=== PATIENT | male | born 1965 | race Caucasian/White ===

== ENCOUNTER 2016-12-02 16:59 | Emergency (ER) | payer BC ==
[2016-12-02] MEDS ORDERED: LIDOCAINE 1% INJ-PF (10 MG/ML) 30 ML SDV INJ ONE (18:02)
--- NOTE | 2016-12-02 18:09 | ER Document Report ---
ED Extremity Problem, Lower - General Chief Complaint: Laceration Stated Complaint: LEG LACERATION Time Seen by Provider: 12/02/16 17:50 Mode of Arrival: Ambulatory Information source: Patient Notes: -year-old male presents to ED for right lower leg laceration. He states he was cutting some plastic with a knife when the knife slipped and cut his lower leg. He states his tetanus shot was last year. TRAVEL OUTSIDE OF THE [place] IN LAST 30 DAYS: No - HPI Patient complains to provider of: Injury, Pain Location: Leg - Right lower leg Occurred: This afternoon Where: Home, Indoors Onset/Duration: Sudden Quality of pain: Sharp Severity: Moderate Pain Level: 4 Context: Laceration Recent injury: Yes Associated symptoms: Painful ambulation Exacerbated by: Movement, Walking Relieved by: Nothing - Related Data Allergies/Adverse Reactions: No Known Allergies Allergy (Verified 12/02/16 17:02) Past Medical History - General Information source: Patient - Social History Smoking Status: Current Every Day Smoker Cigarette use (# per day): Yes - 16 cigarettes a day Chew tobacco use (# tins/day): No Smoking Education Provided: Yes - less than 2 min Frequency of alcohol use: Social Drug Abuse: None 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 [employer] Lives with: Family Family History: Arthritis, CAD, COPD, CVA, Hyperlipidemia, Hypertension, Malignancy Patient has suicidal ideation: No Patient has homicidal ideation: No - Past Medical History Cardiac Medical History: Reports: Hx DVT, Hx Hypertension Pulmonary Medical History: Reports: None EENT Medical History: Reports: None Neurological Medical History: Reports: None Endocrine Medical History: Reports: None Renal/ Medical History: Reports: None Malignancy Medical History: Reports None GI Medical History: Reports: Hx Gastroesophageal Reflux Disease, Hx Colonoscopy , Hx Endoscopy Musculoskeltal Medical History: Reports Hx Arthritis, Reports Hx Musculoskeletal Trauma - Fracture hand bilateral toes foot nose Skin Medical History: Reports None Psychiatric Medical History: Reports: None Traumatic Medical History: Reports: Hx Fractures - Fracture hand bilateral toes foot nose Infectious Medical History: Reports: None Past Surgical History: Reports: Hx Appendectomy, Hx Cardiac Catheterization, Hx Orthopedic Surgery - R foot/knee, L hand, Hx Tonsillectomy, Other - eye surger - Immunizations Immunizations up to date: No - tetnus given in ED Hx Diphtheria, Pertussis, Tetanus Vaccination: Yes Review of Systems - Review of Systems Constitutional: No symptoms reported EENT: No symptoms reported Cardiovascular: No symptoms reported Respiratory: No symptoms reported Gastrointestinal: No symptoms reported Genitourinary: No symptoms reported Male Genitourinary: No symptoms reported Musculoskeletal: No symptoms reported Skin: Other - Right lower leg laceration Hematologic/Lymphatic: No symptoms reported Neurological/Psychological: No symptoms reported Physical Exam - Vital signs Vitals: Temp Pulse Resp BP Pulse Ox 98.1 F 69 20 142/91 H 95 12/02/16 17:02 12/02/16 17:02 12/02/16 17:02 12/02/16 17:02 12/02/16 17:02 Interpretation: Normal - General General appearance: Appears well, Alert - HEENT Head: Normocephalic, Atraumatic Eyes: Normal Pupils: PERRL - Respiratory Respiratory status: No respiratory distress Chest status: Nontender Breath sounds: Normal Chest palpation: Normal - Cardiovascular Rhythm: Regular Heart sounds: Normal auscultation Murmur: No - Abdominal Inspection: Normal Distension: No distension Bowel sounds: Normal Tenderness: Nontender Organomegaly: No organomegaly - Back Back: Normal, Nontender - Extremities General upper extremity: Normal inspection, Nontender, Normal color, Normal ROM , Normal temperature General lower extremity: Nontender, Normal color, Normal ROM, Normal temperature , Normal weight bearing. No: Ramesh's sign Calf: Laceration - Neurological Neuro grossly intact: Yes Cognition: Normal Orientation: AAOx4 Gay Coma Scale Eye Opening: Spontaneous Gay Coma Scale Verbal: Oriented Gay Coma Scale Motor: Obeys Commands Gay Coma Scale Total: 15 Speech: Normal Motor strength normal: LUE, RUE, LLE, RLE Sensory: Normal - Psychological Associated symptoms: Normal affect, Normal mood - Skin Skin Temperature: Warm Skin Moisture: Dry Skin Color: Normal Skin irregularity: Laceration - Lower leg right Course - Vital Signs Vital signs: Temp Pulse Resp BP Pulse Ox 98.1 F 50 L 18 121/68 95 12/02/16 17:02 12/02/16 19:27 12/02/16 19:27 12/02/16 19:27 12/02/16 19:27 Discharge - Discharge Clinical Impression: Laceration of left leg Qualifiers: Encounter type: initial encounter Qualified Code(s): S81.812A - Laceration without foreign body, left lower leg, initial encounter Condition: Stable Disposition: HOME, SELF-CARE Additional Instructions: LACERATION CARE: Your laceration has been sutured to keep the skin edges aligned during healing. The time of suture removal depends on the nature and location of your cut. Please follow the care instructions the doctor has outlined for you and return for further care, according to the schedule you've been given. Keep the wound and dressing clean. Unless you were told otherwise, you may shower daily, blotting the wound dry with a clean, unused towel. At other times, If the dressing gets wet or blood soaked, remove it and blot the wound dry, then reapply a new dressing. Unless you were instructed otherwise, dressings should be changed at least daily. If any signs of infection occur (swelling, redness, drainage, increasing tenderness, red streaks, tender lumps in the armpit or groin above the laceration, or fever), see the doctor immediately. SOAP CLEANSING: Gently wash the wound daily using a mild soap (like Ivory, Phisoderm, Neutrogena). Use warm water, rubbing gently until all debris, ooze, and crusting have been washed from the wound. Allow to dry briefly (about 10 minutes) after cleaning. Repeat this cleansing at least three times a day for the first two days and then once or twice a day. ANTIBIOTIC OINTMENT PROTECTION: Your wounds are such that dressing them is not practical or optional. After cleansing, you should apply a thin coating of antibiotic ointment ( Bacitracin, not Neosporin) to the wounds at least three times daily. This lessens infection risk, and may decrease the amount of scarring. Use a q-tip or dull butter knife, not your finger, to apply this ointment. Any debris or ooze which builds up in the ointment should be gently rubbed off with a sterile gauze pad. Harder crusting may need to be gently scrubbed off with a clean wash cloth with soap and warm water, perhaps applying a warm, wet wash cloth to the wound for ten minutes first. Development of redness, severe itching, or blistering may mean allergy to the ointment. See the doctor. PROPHYLACTIC ANTIBIOTIC: The antibiotics which have been prescribed are designed to decrease the risk of infection. Only certain types of wounds benefit from this -- the typical cut, scrape, or burn DOES NOT require antibiotics. Of course, infection can still occur despite the use of prophylactic antibiotics. Your wound will heal with less chance of an infectious complication if you take the medication as directed. The most important dose is the FIRST dose, so don't delay filling the prescription! ORAL NARCOTIC MEDICATION: You have been given a prescription for pain control. This medication is a narcotic. It's best taken with food, as nausea can result if taken on an empty stomach. Don't operate machinery or drive within six hours of taking this medication. Do not combine this medicine with alcohol, or with any medication which can cause sedation (such as cold tablets or sleeping pills) unless you get permission from the physician. Narcotics tend to cause constipation. If possible, drink plenty of fluids and eat a diet high in fiber and fruits. Cephalosporins An antibiotic of the cephalosporin class has been prescribed. This type of antibiotic covers a wide variety of infections, including those of the skin, lungs, middle ear, and urinary tract. This antibiotic is somewhat similar to the penicillin family. In rare cases , a person who is allergic to penicillin will also be allergic to this medication. If you have had a severe allergic reaction to penicillin, and have not taken this antibiotic since that time, notify your doctor. Antibiotics which cover many germs ("broad spectrum" antibiotics) are more likely to cause diarrhea or "yeast" infections. Women prone to vaginal yeast problems may suffer an attack after taking this antibiotic. In infants, oral thrush (white spots "stuck" on the cheek) or yeast diaper rash may result. See your doctor if these problems occur. Call the doctor at once if you develop hives, itching, shortness of breath , or lightheadedness. cef FOLLOW-UP CARE: Please return in __3___ days for an infection check and dressing change. Your sutures should be removed in __9___ days. To facilitate a timely removal of your sutures, you may return to the Emergency Department at [facility]. You do not need to call for an appointment, but the best time to come in for suture removal is early in the morning. If you have been referred to another physician for follow-up care, call that physicians office for an appointment as you were instructed. If you experience a significant change in your laceration, or if you are concerned there may be an infection (swelling, redness, drainage, increasing tenderness, red streaks, tender lumps in the armpit or groin above the laceration, or fever) , return to the Emergency Department immediately re-evaluation. Prescriptions: Hydrocodone/Acetaminophen [[place] 5-325 mg Tablet] 1 tab PO Q6HP PRN #7 tablet PRN Reason: Cefdinir 300 mg PO Q12 7 Days Forms: Elevated Blood Pressure, Smoking Cessation Education, Return to Work Referrals: FAIZA RYAN DO [Primary Care Provider] - Follow up as needed
[2016-12-02 19:29] VITALS: BP 121/68
== END 2016-12-02 19:27 | disposition home or self-care (01) ==
LOC: ER 16:59
PROC: 0HQKXZZ Repair Right Lower Leg Skin, External Approach (ICD-10-PCS; principal; 2016-12-02)
DX: S81.811A Laceration without foreign body, right lower leg, initial encounter (principal); F17.210 Nicotine dependence, cigarettes, uncomplicated; W26.0XXA Contact with knife, initial encounter
CPT/HCPCS: 99282; 12001; J3490

== ENCOUNTER 2017-02-08 01:38 | Observation (INO) | payer BC ==
[2017-02-08 03:27] LABS: ABSOLUTE BASOPHILS # (AUTO) 0.1 10^3/uL (0.0-0.2); ABSOLUTE EOSINOPHILS # (AUTO) 0.4 10^3/uL (0.0-0.6); ABSOLUTE LYMPHOCYTES (AUTO) 2.9 10^3/uL (0.5-4.7); ABSOLUTE MONOCYTES (AUTO) 1.1 10^3/uL (0.1-1.4); ABSOLUTE NEUT (AUTO) 5.7 10^3/uL (1.7-8.2); BASOPHILS % (AUTO) 1.4 % (0-2); EOSINOPHILS % (AUTO) 3.7 % (0-6); HEMATOCRIT 45.4 % (37.9-51.0); HEMOGLOBIN 15.4 g/dL (13.5-17.0); HGB HCT DIFFERENCE 0.8; LYMPHOCYTES % (AUTO) 28.5 % (13-45); MEAN CORPUSCULAR HEMOGLOBIN 31.3 pg (27.0-33.4); MEAN CORPUSCULAR VOLUME 92 fl (80-97); MONOCYTES % (AUTO) 10.5 % (3-13); RED BLOOD COUNT 4.93 10^6/uL (4.35-5.55); RED CELL DISTRIBUTION WIDTH 14.7 % (11.5-14.0); SEGMENTED NEUTROPHILS % (AUTO) 55.9 % (42-78); WHITE BLOOD COUNT 10.3 10^3/uL (4.0-10.5)
[2017-02-08 03:38] LABS: ALANINE AMINOTRANSFERASE 32 U/L (21-72); ALBUMIN 3.8 g/dL (3.5-5.0); ALKALINE PHOSPHATASE 60 U/L (38-126); ANION GAP 11 (5-19); ASPARTATE AMINO TRANSFERASE 26 U/L (17-59); BILIRUBIN,DIRECT 0.3 mg/dL (0.0-0.4); BILIRUBIN,TOTAL 0.3 mg/dL (0.2-1.3); BLOOD UREA NITROGEN 15 mg/dL (7-20); CALCIUM 8.3 mg/dL (8.4-10.2); CARBON DIOXIDE 23 mmol/L (22-30); CHLORIDE 109 mmol/L (98-107); CREATINE KINASE 369 U/L (55-170); GLUCOSE 139 mg/dL (75-110); POTASSIUM 4.1 mmol/L (3.6-5.0); SODIUM 142.5 mmol/L (137-145); TOTAL PROTEIN 6.9 g/dL (6.3-8.2)
--- NOTE | 2017-02-08 03:50 | RADIOLOGY REPORT (SQ) ---
EXAM DESCRIPTION: CHEST SINGLE VIEW COMPLETED DATE/TIME: 02/08/2017 3:37 am REASON FOR STUDY: chest pain COMPARISON: None. EXAM PARAMETERS: NUMBER OF VIEWS: One view. TECHNIQUE: Single frontal radiographic view of the chest acquired. RADIATION DOSE: NA LIMITATIONS: None. FINDINGS: LUNGS AND PLEURA: Mild interstitial markings. MEDIASTINUM AND HILAR STRUCTURES: No masses. Contour normal. HEART AND VASCULAR STRUCTURES: Heart normal in size. Normal vasculature. BONES: No acute findings. HARDWARE: None in the chest. OTHER: No other significant finding. IMPRESSION: Mild interstitial markings which may indicate mild pulmonary edema and/or chronic inters titial lung disease. TECHNICAL DOCUMENTATION: JOB ID: [id number]
[2017-02-08 03:57] LABS: CREATINE KINASE MB 4.79 ng/mL (<4.55); TROPONIN I < 0.012 ng/mL
[2017-02-08] MEDS ORDERED: NITROGLYCERIN 2% OINTMENT 1 GM PACKET TP ONE (04:23)
[2017-02-08] MEDS ORDERED: ASPIRIN 325 MG TABLET PO ONE (04:23)
--- NOTE | 2017-02-08 04:29 | ER Document Report ---
ED General - General Chief Complaint: Chest Pain Stated Complaint: CHEST PAIN Time Seen by Provider: 02/08/17 04:15 Notes: Patient is a 51-year-old male who presents with complaints of chest pain. Chest pain came on suddenly while he is lying in bed at home around midnight. Pain was sharp and severe. It radiated across his entire chest. It did not go into his neck or jaw or back. He did feel short of breath. He was a little diaphoretic. He did vomit once. No abdominal pain. He does have a history of "a mild [place]" in 2006. He was shipped [facility]. At that time they did a heart cath and stress test which was negative. No stress test since then. Does have a history of high blood pressure. He does have a history of smoking. TRAVEL OUTSIDE OF THE [place] IN LAST 30 DAYS: No - Related Data Allergies/Adverse Reactions: No Known Allergies Allergy (Verified 12/02/16 17:02) Past Medical History - Social History Smoking Status: Current Every Day Smoker Frequency of alcohol use: None Drug Abuse: None Family History: Arthritis, CAD, COPD, CVA, Hyperlipidemia, Hypertension, Malignancy Patient has suicidal ideation: No Patient has homicidal ideation: No - Past Medical History Cardiac Medical History: Reports: Hx DVT, Hx Hypertension Pulmonary Medical History: Denies: Hx COPD Renal/ Medical History: Denies: Hx Peritoneal Dialysis GI Medical History: Reports: Hx Gastroesophageal Reflux Disease, Hx Colonoscopy , Hx Endoscopy Musculoskeltal Medical History: Reports Hx Arthritis, Reports Hx Musculoskeletal Trauma - Fracture hand bilateral toes foot nose Traumatic Medical History: Reports: Hx Fractures - Fracture hand bilateral toes foot nose Past Surgical History: Reports: Hx Appendectomy, Hx Cardiac Catheterization, Hx Orthopedic Surgery - R foot/knee, L hand, Hx Tonsillectomy, Other - eye surger. Denies: Hx Pacemaker - Immunizations Immunizations up to date: No - tetnus given in ED Hx Diphtheria, Pertussis, Tetanus Vaccination: Yes Review of Systems - Review of Systems Notes: My Normal Review Basic REVIEW OF SYSTEMS: CONSTITUTIONAL : Denies fever, chills, or sweats. Denies recent illness. CARDIOVASCULAR: Had chest pain RESPIRATORY: Denies cough, cold, or chest congestion. Denies shortness of breath, difficulty breathing, or wheezing. GASTROINTESTINAL: Denies abdominal pain. Vomiting x1. Denies constipation. Last BM: MUSCULOSKELETAL: Denies neck or back pain or joint pain or swelling. SKIN: Denies rash or skin lesions. NEUROLOGICAL: Denies altered mental status or loss of consciousness. Denies headache. Denies weakness or paralysis or loss of use of either side. Denies problems with gait or speech. Denies sensory or motor loss. ALL OTHER SYSTEMS REVIEWED AND NEGATIVE. Physical Exam - Vital signs Vitals: Temp Pulse Resp BP Pulse Ox 98 F 61 18 144/87 H 96 02/08/17 01:42 02/08/17 01:42 02/08/17 01:42 02/08/17 01:42 02/08/17 01:42 - Notes Notes: General Appearance: Well nourished, alert, cooperative, no acute distress, no obvious discomfort. Vitals: reviewed, See vital signs table. Eyes: PERRL, EOMI, Conjuctiva clear Mouth: No decreasd moisture Neck: Supple, no neck tenderness Lungs: No wheezing, No rales, No rhonci, No accessory muscle use, good air exchange bilaterally. Heart: Normal rate, Regular rythm, No murmur, no rub Abdomen: Normal BS, soft, No rigidity, No abdominal tenderness, No guarding, no rebound, no abdominal masses, no organomegaly Extremities: strength 5/5 in all extremities, good pulses in all extremities, no swelling or tenderness in the extremities, no edema. Skin: warm, dry, appropriate color, no rash Neuro: speech clear, oriented x 3, normal affect, responds appropriately to questions. Course - Re-evaluation Re-evalutation: 02/08/17 04:30 Patient is feeling improved. His pain is improving. I will give him a dose of aspirin. Last time it aspirin was 5 AM yesterday. Patient does have risk factors for heart disease. He is a smoker. Some family history. Patient's heart score is 4. He does have Nitropaste in place to help prevent return of pain. I did talk to him about admission and he is agreeable to it. We are currently pending to hear back from the hospitalist about possible admission. 02/08/17 06:[address] Cook who agrees to admit the patient. - Vital Signs Vital signs: Temp Pulse Resp BP Pulse Ox 98 F 61 18 144/87 H 96 02/08/17 01:42 02/08/17 01:42 02/08/17 01:42 02/08/17 01:42 02/08/17 01:42 - Laboratory Result Diagrams: 02/08/17 03:10 02/08/17 03:10 Laboratory results interpreted by me: 02/08/17 02/08/17 02/08/17 03:10 03:10 03:10 RDW 14.7 H Chloride 109 H Glucose 139 H Calcium 8.3 L Creatine Kinase 369 H CK-MB (CK-2) 4.79 H Discharge - Discharge Clinical Impression: Chest pain Qualifiers: Chest pain type: unspecified Qualified Code(s): R07.9 - Chest pain, unspecified Condition: Stable Disposition: ADMITTED OBSERVATION Admitting Provider: Hospitalist Unit Admitted: Telemetry
[2017-02-08] MEDS ORDERED: MAG HYDROX/AL HYDROX/SIMETH SUSP 30 ML UDCUP PO PRN (07:26)
[2017-02-08] MEDS ORDERED: PROMETHAZINE HCL 25 MG TABLET PO PRN (07:29)
[2017-02-08] MEDS ORDERED: ACETAMINOPHEN 325 MG TABLET PO PRN (07:29)
[2017-02-08] MEDS ORDERED: NICOTINE 14 MG/24 HR PATCH.TD24 TD PRN (07:36)
--- NOTE | 2017-02-08 08:27 | PDOC H&P ---
History of Present Illness Admission Date/PCP: 02/08/17 07:26 FAIZA RYAN DO Patient complains of: Chest pain History of Present Illness: MAX LLANOS JR is a 51 year old male with underlying hypertension , along with coronary artery disease, having suffered a previous [place] 2006 with negative heart cath at that time, according to patient. No cardiac workup since then. Patient was lying in bed around midnight on the night when he developed sudden sharp and quite severe primarily substernal chest pain, that radiated across his entire chest. Did not go into his neck jaw or back. Associated shortness of breath and mild diaphoresis, along with vomiting 1. No abdominal pain. Drove himself to the emergency room. Has been chest pain-free since Nitropaste applied. History remarkable for DVT of the left lower extremity last year, treated with Lovenox. He also drove back and forth to [place] last month, but did state that he stopped multiple times along the way. Currently resting quietly, chest pain-free. Patient has been discussed with emergency room physician who evaluated the patient. . Dictation via voice recognition software. Laboratory results are listed in [employer] and are reviewed. X-ray summary results are listed below, with full report(s) reviewed. . EKG reviewed and compared to prior tracing from August 21, 2012. Social history/personal habits: . 4 children. 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 Just under a pack of cigarettes per day. Occasional alcohol, but not very much or very often. Denies illicit drug use. No known drug allergies. Home medications initially autopopulated into [facility] may not accurately reflect patient's true medications, dosages, and/or frequencies. technology solutions architect to reconcile medications. Unfortunately, patient not certain of all medications/dosages/frequencies. REVIEW OF SYSTEMS: Constitutional: No fever or chills. Eyes: Wears reading glasses. ENT: No swallowing problems or complaints. Partial hearing loss. Pulmonary: See history and present illness. Cardiovascular: See history and present illness. Gastrointestinal: See history and present illness. Mild occasional reflux. Skin: No current complaints, including rashes. Hematologic: Easy bruising. Neurologic: No current complaints, including numbness or tingling. Musculoskeletal: Joint pain from arthritis. Psychiatric: Denies anxiety or depression. Endocrine: No current complaints, including polyuria. Genitourinary: No current complaints, including dysuria. PHYSICAL EXAMINATION: 6 feet tall. 108.4 kg. BMI 32.4 kg/m. Blood pressure 123/68. Pulse 54 and regular. 95% saturation on room air. Respirations are 16 and unlabored. Temperature 98. Slightly obese otherwise well-nourished well-developed male appearing approximately his stated age. Pleasant awake alert and cooperative. No obvious distress other than perhaps mildly anxious. Skin is warm and dry. No grossly obvious evidence of rash in areas of skin examined. No subcutaneous nodules palpated. ENT: Perhaps mildly hard of hearing to normal conversation. Tongue midline on protrusion pink and slightly tacky. Eyes: No scleral icterus. Pupils equal and reactive to light at 4 mm. [place] conjunctivae. Neck is supple and nontender to gentle active range of motion and palpation. Midline trachea. No palpable thyroid nodule mass enlargement or tenderness. Lymphatic: No palpable cervical or clavicular nodes. Neck and lymphatic exams limited by patient body habitus. Psychiatric: Reasonable insight into acute and chronic medical issues. Oriented to time location and why here. Lungs: Auscultation reveals clear and equal breath sounds bilaterally. No use of accessory respiratory muscles. Cardiovascular: Heart regular rate and rhythm, without gallop murmur or rub. No carotid or abdominal aortic bruits. No ankle or pedal edema. Palpable dorsalis pedis pulses. Abdomen:soft somewhat obese nontender with positive bowel sounds. Unable to adequately evaluate abdomen for masses or organomegaly due to body habitus. Compression of neither his upper abdomen nor sternum reproduces his previously noted chest discomfort. Extremities: Feet are warm and dry. No calf tenderness to compression. No grossly obvious visual evidence of calf swelling. Gentle manipulation of lower extremities fails to reveal any obvious evidence of injury or instability to knees hips or ankles. Neurologic: Moves upper extremities grossly normally. Patellar reflexes absent. Absent Babinski. Light touch is intact at feet. Dorsiflexion and plantarflexion of feet 5 / 5 and symmetric. Past Medical History Cardiac Medical History: Reports: Coronary Artery Disease, DVT - 2016, Myocardial Infarction, Hypertension Denies: Atrial Fibrillation, Congestive Heart Failure, Hyperlipidema, Pulmonary Embolism Pulmonary Medical History: Denies: Asthma, Chronic Obstructive Pulmonary Disease (COPD), Sleep Apnea EENT Medical History: Reports: Eyes - Glasses, Ears - Partial hearing loss Denies: Throat Neurological Medical History: Denies: Hemorrhagic CVA, Ischemic CVA, Seizures Endocrine Medical History: Denies: Diabetes Mellitus Type 1, Diabetes Mellitus Type 2, Hyperthyroidism, Hypothyroidism Renal/ Medical History: Reports: None GI Medical History: Reports: Gastroesophageal Reflux Disease Denies: Cirrhosis, Hepatitis, Peptic Ulcer Disease Musculoskeltal Medical History: Reports: Arthritis Skin Medical History: Reports: None Psychiatric Medical History: Reports: Tobacco Dependency Denies: Alcohol Dependency, Depression, General Anxiety Disorder, Substance Abuse Hematology: Reports: Other - Easy bruising Denies: Anemia Infectious Medical History: Denies: Hepatitis B, Hepatitis C Past Surgical History Past Surgical History: Reports: Appendectomy, Cardiac Catheterization, Orthopedic Surgery - R foot/knee, L hand, Tonsillectomy, Other - Removal of foreign body from my Denies: Pacemaker Social History Information Source: Patient, Emergency Med Personnel, [facility] Records Lives with: Spouse/Significant other Smoking Status: Current Every Day Smoker Frequency of Alcohol Use: Occasional Drugs: None - Advance Directive Resuscitation Status: Full Code Surrogate healthcare decision maker:: Family History Family History: Arthritis, CAD, COPD, CVA, Hyperlipidemia, Hypertension, Malignancy Parental Family History Reviewed: Yes - Mother of cerebral aneurysm; father of suicide. Children Family History Reviewed: Yes - Healthy Sibling(s) Family History Reviewed.: Yes - Coronary artery disease Medication/Allergy Home Medications: Aspirin [Aspirin EC] 81 mg PO DAILY 02/08/17 Omeprazole 40 mg PO DAILY 02/08/17 Allergies/Adverse Reactions: No Known Allergies Allergy (Verified 12/02/16 17:02) Physical Exam Vital Signs: Temp Pulse Resp BP Pulse Ox 98.4 F 46 L 16 107/64 93 02/08/17 07:26 02/08/17 07:26 02/08/17 07:26 02/08/17 07:26 02/08/17 07:26 Results Impressions: Chest X-Ray 02/08/17 02:51 IMPRESSION: Mild interstitial markings which may indicate mild pulmonary edema and/or chronic interstitial lung disease. Assessment & Plan - Diagnosis (1) Chest pain Qualifiers: Chest pain type: unspecified Qualified Code(s): R07.9 - Chest pain, unspecified Is this a current diagnosis for this admission?: YesPlan: Patient will be placed in observation bed under chest pain protocol. Patient understands to notify staff should chest pain recur. Serial troponin . Repeat EKG. lipid panel. I have strongly encouraged patient to be careful getting out of bed without notifying staff, to avoid a fall with injury. Knee high SCDs for DVT prophylaxis, along with subcu Lovenox. Impression and plans were discussed with patient, who concurs . Time spent in evaluation and management of patient: 68 minutes. (2) CAD (coronary artery disease) Qualifiers: Coronary Disease-Associated Artery/Lesion type: [place] artery [place] vs. transplanted heart: [place] heart Associated angina: with unspecified angina Qualified Code(s): I25.119 - Atherosclerotic heart disease of [place] coronary artery with unspecified angina pectoris Is this a current diagnosis for this admission?: Yes (3) History of DVT (deep vein thrombosis) Is this a current diagnosis for this admission?: YesPlan: D-dimer. (4) HTN (hypertension) Qualifiers: Hypertension type: essential hypertension Qualified Code(s): I10 - Essential (primary) hypertension Is this a current diagnosis for this admission?: YesPlan: Resume home medications as appropriate once these have been determined and reviewed. (5) Tobacco dependency Is this a current diagnosis for this admission?: YesPlan: As needed nicotine patch.
[2017-02-08] MEDS: ASPIRIN 81 MG TABLET, ENT COATED PO SCH (09:43)
[2017-02-08] MEDS: DOCUSATE SODIUM 100 MG CAPSULE PO SCH ×2 (09:44→17:51)
[2017-02-08 09:49] LABS: CHOLESTEROL 152.32 mg/dL (0-200); Direct HDL 40 mg/dL (>40); TRIGLYCERIDES 167 mg/dL (<150)
[2017-02-08 09:59] LABS: DIRECT LDL 86 mg/dL (<100)
[2017-02-08] MEDS ORDERED: ENOXAPARIN SODIUM INJ 40 MG/0.4 ML DISP.SYRIN SUBCUT SCH (10:00)
[2017-02-08 10:02] LABS: VLDL CHOLESTEROL 33.4 mg/dL (10-31)
--- NOTE | 2017-02-08 10:59 | EKG REPORT ---
SEVERITY:- BORDERLINE ECG - SINUS RHYTHM BORDERLINE T WAVE ABNORMALITIES : Confirmed by: Alma Delia Reyes 08-Feb-2017 10:58:21
[2017-02-08] MEDS ORDERED: NORMAL SALINE 1000 ML 1,000 ML IV PRN (13:58)
[2017-02-08] MEDS ORDERED: NITROGLYCERIN 2.5 MG (0.1 MG/HR) PATCH.TD24 TD SCH (14:00)
--- NOTE | 2017-02-08 14:13 | Progress Note ---
Provider Note Provider Note: admitted earlier this morning for substernal chest pain with history of prior [place] but negative heart cath at [place], his pain resolved with topical nitro and has not recurred. his exam is benign, no murmur, lungs are clear, NSR without ischemic changes on ecg, symmetric pulses at the radial arteries, no edema or JVD, no carotid or abdominal bruits, clubbing of all nails with tobacco stains on his dominant hand. cxr was clear without widening of the mediastinum. labs unremarkable except CK, MB elevated on arrival and repeat troponin now 0.373. A/P: NSTEMI - will ck another troponin, echo and CTA chest. start empiric full dose lovenox, high dose statin, topical nitro and continue ASA. if continues to rise and remaining eval are negative then he will need transfer for heart cath tob abuse - cessation counseling
[2017-02-08] MEDS ORDERED: NITROGLYCERIN 2.5 MG (0.1 MG/HR) PATCH.TD24 TD ONE (16:00)
[2017-02-08 16:21] LABS: CREATINE KINASE MB 5.94 ng/mL (<4.55)
[2017-02-08 16:27] LABS: TROPONIN I 0.509 ng/mL
[2017-02-08] MEDS ORDERED: CLOPIDOGREL BISULFATE 300 MG TABLET PO ONE (17:30)
--- NOTE | 2017-02-08 18:02 | RADIOLOGY REPORT (SQ) ---
EXAM DESCRIPTION: CTA CHEST COMPLETED DATE/TIME: 02/08/2017 5:43 pm REASON FOR STUDY: chest pain, eval for dissection, aneurysm COMPARISON: None. TECHNIQUE: CT scan of the chest performed using helical scanning technique with dynamic intravenous contrast injection. Images reviewed with lung, soft tissue and bone windows. Reconstructed coronal and sagittal MPR images reviewed. Additional 3 dimensional post-processing performed to develop Maximal Intensity Projection images (NM P). All images stored on PACS. All CT scanners at this facility use dose modulation, iterative reconstruction, and/or weight based d osing when appropriate to reduce radiation dose to as low as reasonably achievable (ALARA). [facility]: Dose Right [facility]: CareDose [facility]: Dose Right [facility]: Teradose 4D [facility]: Braclet CONTRAST TYPE AND DOSE: contrast/concentration: Isovue 370.00 mg/ml; Total Contrast Delivered: 82.0 ml; Total Saline Delivered: 70.0 ml RENAL FUNCTION: Creatinine 0.7 BUN 15 RADIATION DOSE: Up-to-date CT equipment and radiation dose reduction techniques were employed. CTDIv ol: 24.0 - 29.8 mGy. DLP: 968 mGy-cm. . LIMITATIONS: None. FINDINGS: LUNGS AND PLEURA: Small peripheral blebs are present in the lung apices. Small blebs are seen posteriorly in the lower lobes. There is no pulmonary infiltrate or pleural effusion. AORTA AND GREAT VESSELS: No aneurysm or dissection. HEART: No pericardial effusion. PULMONARY ARTERIES: No emboli visualized in the main pulmonary arteries or the segmental branches. HILAR AND MEDIASTINAL STRUCTURES: No identified masses or abnormal nodes. HARDWARE: None in the chest. UPPER ABDOMEN: No significant findings. Limited exam. THYROID AND OTHER SOFT TISSUES: No masses. No adenopathy. BONES: No acute or significant finding. 3D MIPS: Confirm above findings. OTHER: No other significant finding. IMPRESSION: 1. Pulmonary emphysematous changes as described. 2. There is no evidence of aortic aneurysm or dissection. There is no evidence of pulmonary embolus . TECHNICAL DOCUMENTATION: JOB ID: [id number] Quality ID # [id number]: Final reports with documentation of one or more dose reduction techniques (e.g., Au tomated exposure control, adjustment of the mA and/or kV according to patient size, use of iterative reconstruction technique) 2010 [employer]- All Rights Reserved
--- NOTE | 2017-02-08 19:01 | PDOC TRANSFER SUMMARY ---
General Admission Date/PCP: 02/08/17 07:26 FAIZA RYAN DO Transfer Date: 02/09/17 Accepting Facility: [facility] Accepting Physician: dr boaz panda Resuscitation Status: Full Code - Transfer Diagnosis (1) NSTEMI (non-ST elevation myocardial infarction) Is this a current diagnosis for this admission?: YesDiagnosis Summary: presented with chest pain and a good story and ruled in for acute myocardial ischemia with rising troponins and CK/MBs. his ecg shows loss of R wave progression and flattening of anterolateral T waves since last one on file in 2012. case was discussed with dr araya without formal consultation and he agrees that pt needs interventional cardiology evaluation for left heart cath. I spoke with Dr Boaz Panda at [facility] who agreed to accept him transfer pending an available bed. He remains chest pain free at this time. He is now receiving topical NTG, loading dose of plavix 300mg x1, lovenox 1 mg/kg, ASA and high dose lipitor. beta cristian is contraindicated due to developing mild bradycardia with resting HR in mid-50s. Case discussed with he and his and they are agreeable to transfer. (2) CAD (coronary artery disease) Is this a current diagnosis for this admission?: YesDiagnosis Summary: as above (3) History of DVT (deep vein thrombosis) Is this a current diagnosis for this admission?: YesDiagnosis Summary: treated appropriately last year, not on chronic anticoagulation; CTA neg for dissection, aneurysm and PE and ddimer only 28. (4) HTN (hypertension) Is this a current diagnosis for this admission?: YesDiagnosis Summary: well controlled at present. (5) Tobacco dependency Is this a current diagnosis for this admission?: YesDiagnosis Summary: counseled regarding tobacco cessation - Transfer Medications Home Medications: Aspirin [Aspirin EC] 81 mg PO DAILY 02/08/17 Omeprazole 40 mg PO DAILY 02/08/17 Transfer Medications: Current Medications Acetaminophen (Tylenol 325 Mg Tablet) 650 mg PO Q4HP PRN Stop: 03/10/17 07:28 Al Hydrox/Mg Hydrox/Simethicone (Maalox Plus Susp 30 Udcup) 30 ml PO Q4HP PRN PRN Reason: indigestion Stop: 03/10/17 07:25 Aspirin (Ecotrin 81 Mg Ec Tablet) 81 mg PO DAILY MIRA Stop: 03/10/17 09:59 Last Admin: 02/08/17 09:43 Dose: 81 mg Atorvastatin Calcium (Lipitor 80 Mg Tablet) 80 mg PO QHS MIRA Stop: 03/10/17 21:59 Docusate Sodium (Colace 100 Mg Capsule) 100 mg PO BID MIRA Stop: 03/10/17 09:59 Last Admin: 02/08/17 17:51 Dose: Not Given Enoxaparin Sodium (Lovenox Inj 120 Mg/0.8 Ml Disp.Syrin) 110 mg SUBCUT Q12 MIRA Stop: 03/10/17 21:59 Sodium Chloride (Nacl 0.9% 1000 Ml Iv Soln) 1,000 mls @ 100 mls/hr IV CONTINUOUS PRN PRN Reason: THIS MED IS NOT "PRN" Stop: 03/10/17 13:57 Last Admin: 02/08/17 15:19 Dose: 1,000 ml Nicotine (Nicoderm 14 Mg/24 Hr Transdermal Patch) 1 each TD DAILYP PRN Stop: 03/10/17 07:35 Last Admin: 02/08/17 09:44 Dose: 1 each Nitroglycerin (Nitro-Dur 2.5 Mg (0.1 Mg/Hr) Transdermal Ptch) 1 each TD DAILY MIRA Stop: 03/11/17 09:59 Promethazine HCl (Phenergan 25 Mg Tablet) 12.5 mg PO Q6HP PRN Stop: 03/10/17 07:28 Sodium Chloride (Saline Flush 2.5 Ml Monoject Prefil Syrin) 2.5 ml IV Q8 MIRA Stop: 03/10/17 13:59 Last Admin: 02/08/17 15:33 Dose: Not Given - Allergies Allergies/Adverse Reactions: No Known Allergies Allergy (Verified 12/02/16 17:02) - Diet/Activity Discharge Diet: Regular Discharge Activity: Supervised Activity Hospital Course Hospital Course: per dr naik's admitting H&P - "MAX LLANOS JR is a 51 year old male with underlying hypertension, along with coronary artery disease , having suffered a previous [place] 2006 with negative heart cath at that time, according to patient. No cardiac workup since then. Patient was lying in bed around midnight on the night when he developed sudden sharp and quite severe primarily substernal chest pain, that radiated across his entire chest. Did not go into his neck jaw or back. Associated shortness of breath and mild diaphoresis, along with vomiting 1. No abdominal pain. Drove himself to the emergency room. Has been chest pain-free since Nitropaste applied. History remarkable for DVT of the left lower extremity last year, treated with Lovenox. He also drove back and forth to [place] last month, but did state that he stopped multiple times along the way. Currently resting quietly, chest pain- free." his initial evaluation was largely reassuring other than elevated CK/MB, his TpI was normal and ecg just had nonspecific findings. his chest went away with topical NTG and did not return. he was admitted and ruled in for acute myocardial ischemia with rising enzymes but no further changes to his ecg than noted above. stat CTA ruled out aortic dissection and aneurysm and PE, ddimer was only 28 and wnl and remainder of his labs unremarkable, his lipid panel only mildly abnormal. 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 Physical Exam Vital Signs: Temp Pulse Resp BP Pulse Ox 98.3 F 55 L 16 107/64 95 02/08/17 16:59 02/08/17 16:59 02/08/17 16:59 02/08/17 16:59 02/08/17 16:59 Intake & Output 02/07/17 02/08/17 02/09/17 06:59 06:59 06:59 Intake Total 2052 Output Total 1700 Balance 352 Weight 108 kg General appearance: PRESENT: no acute distress, obese, well-developed, well- nourished Head exam: PRESENT: atraumatic, normocephalic Eye exam: PRESENT: EOMI. ABSENT: conjunctival injection, scleral icterus Neck exam: ABSENT: carotid bruit, JVD, lymphadenopathy, tenderness Respiratory exam: PRESENT: clear to auscultation ashleigh. ABSENT: accessory muscle use Cardiovascular exam: PRESENT: RRR. ABSENT: diastolic murmur, systolic murmur Pulses: PRESENT: normal radial pulses, normal dorsalis pedis pul Vascular exam: PRESENT: normal capillary refill GI/Abdominal exam: PRESENT: normal bowel sounds, soft. ABSENT: tenderness Extremities exam: PRESENT: clubbing. ABSENT: calf tenderness, pedal edema Musculoskeletal exam: PRESENT: ambulatory, full ROM Neurological exam: PRESENT: alert, awake, oriented to person, oriented to place , oriented to time, oriented to situation Psychiatric exam: PRESENT: appropriate affect, normal mood Skin exam: PRESENT: dry, warm Results Laboratory Results: 02/08/17 09:05 Triglycerides 167 H Cholesterol 152.32 LDL Cholesterol Direct 86 VLDL Cholesterol 33.4 H HDL Cholesterol 40 02/08/17 02/08/17 02/08/17 09:05 10:44 15:30 Creatine Kinase CK-MB (CK-2) 5.94 H Troponin I Cancelled 0.373 0.509 NT-Pro-B Natriuret Pep 46 02/08/17 15:30 Creatine Kinase 311 H CK-MB (CK-2) Troponin I NT-Pro-B Natriuret Pep Impressions: Chest/Abdomen CTA 02/08/17 00:00 IMPRESSION: 1. Pulmonary emphysematous changes as described. 2. There is no evidence of aortic aneurysm or dissection. There is no evidence of pulmonary embolus. Chest X-Ray 02/08/17 02:51 IMPRESSION: Mild interstitial markings which may indicate mild pulmonary edema and/or chronic interstitial lung disease. Plan Discharge Plan: transfer for invasive cardio eval Time Spent: Greater than 30 Minutes
[2017-02-08] MEDS: ENOXAPARIN SODIUM INJ 120 MG/0.8 ML DISP.SYRIN SUBCUT SCH (21:56)
[2017-02-08] MEDS ORDERED: ATORVASTATIN CALCIUM 80 MG TABLET PO SCH (22:00)
[2017-02-09] MEDS ORDERED: NITROGLYCERIN 2.5 MG (0.1 MG/HR) PATCH.TD24 TD SCH (10:00)
[2017-02-09] MEDS: ENOXAPARIN SODIUM INJ 120 MG/0.8 ML DISP.SYRIN SUBCUT SCH (11:57)
[2017-02-09] MEDS: DOCUSATE SODIUM 100 MG CAPSULE PO SCH (11:59)
[2017-02-09] MEDS: ASPIRIN 81 MG TABLET, ENT COATED PO SCH (12:00)
--- NOTE | 2017-02-09 13:28 | EKG REPORT ---
SEVERITY:- ABNORMAL ECG - SINUS RHYTHM NONSPECIFIC T ABNORMALITIES, LATERAL LEADS : Confirmed by: Alma Delia Reyes 09-Feb-2017 13:28:18
--- NOTE | 2017-02-09 14:03 | Progress Note ---
Provider Note Provider Note: patient seen and examined; chart reviewed; nursing notes reviewed and discussed with nurse at bedside he remains chest pain free and in good spirits. he is hemodynamically stable as well. awake and alert and oriented x3, lungs CTAB, cardio rrr without m/r/g , radial pulses good and symmetric, no edema or JVD, abd s/nt/nd with good BSs and no abd bruit, strenght is 5/5 upper and lower ext's, mood/affect appropriate. CTA chest reviewed and shows no worrisome findings. at this point [facility] is [facility] bed availability. a/p: NSTEMI - stable, continue current regimen HTN - well controlled on current regimen tob abuse - cessation counseling offered previously, assures me "he WILL quit"
[2017-02-09] MEDS ORDERED: MAG HYDROX/AL HYDROX/SIMETH SUSP 30 ML UDCUP PO PRN (14:55)
[2017-02-09] MEDS ORDERED: PROMETHAZINE HCL 25 MG TABLET PO PRN (14:56)
[2017-02-09] MEDS ORDERED: ACETAMINOPHEN 325 MG TABLET PO PRN (14:57)
[2017-02-09 16:10] VITALS: BP 117/68
== END 2017-02-09 16:38 | disposition short-term general hospital (02) ==
LOC: ER 01:38 → UNDOADMOB 06:16 → EH 06:16 → 4W 07:30 → EH 07:30 → 4S 02-09 11:44
PROVIDERS: ADMIT Family Medicine; ATTEND Family Medicine
DX: I21.4 Non-ST elevation (NSTEMI) myocardial infarction (principal); I25.119 Atherosclerotic heart disease of native coronary artery with unspecified angina pectoris; R00.1 Bradycardia, unspecified; I10 Essential (primary) hypertension; F17.200 Nicotine dependence, unspecified, uncomplicated; I25.2 Old myocardial infarction; F17.210 Nicotine dependence, cigarettes, uncomplicated; M19.90 Unspecified osteoarthritis, unspecified site; K21.9 Gastro-esophageal reflux disease without esophagitis; Z86.718 Personal history of other venous thrombosis and embolism; Z79.82 Long term (current) use of aspirin; Z79.899 Other long term (current) drug therapy; Z90.49 Acquired absence of other specified parts of digestive tract; Z82.49 Family history of ischemic heart disease and other diseases of the circulatory system
CPT/HCPCS: 93005 ×2; 99285; 36415; 82553; 82550; 85025; 80053; 84484; 85379; 80061; 83880; 71010; 71275; 93010; G0378 ×3; J3490 ×3; J1650 ×3; J7030

== ENCOUNTER 2017-09-19 14:29 | Observation (INO) | payer BC ==
[2017-09-19 15:26] LABS: ABSOLUTE BASOPHILS # (AUTO) 0.1 10^3/uL (0.0-0.2); ABSOLUTE EOSINOPHILS # (AUTO) 0.2 10^3/uL (0.0-0.6); ABSOLUTE LYMPHOCYTES (AUTO) 3.8 10^3/uL (0.5-4.7); ABSOLUTE MONOCYTES (AUTO) 0.8 10^3/uL (0.1-1.4); ABSOLUTE NEUT (AUTO) 4.4 10^3/uL (1.7-8.2); BASOPHILS % (AUTO) 1.1 % (0-2); EOSINOPHILS % (AUTO) 2.6 % (0-6); HEMATOCRIT 50.3 % (37.9-51.0); HEMOGLOBIN 16.7 g/dL (13.5-17.0); LYMPHOCYTES % (AUTO) 41.1 % (13-45); MEAN CORPUSCULAR HEMOGLOBIN 30.6 pg (27.0-33.4); MEAN CORPUSCULAR HGB CONC 33.2 g/dL (32.0-36.0); MEAN CORPUSCULAR VOLUME 92 fl (80-97); MONOCYTES % (AUTO) 8.5 % (3-13); PLATELET COUNT 275 10^3/uL (150-450); RED BLOOD COUNT 5.46 10^6/uL (4.35-5.55); RED CELL DISTRIBUTION WIDTH 14.5 % (11.5-14.0); SEGMENTED NEUTROPHILS % (AUTO) 46.7 % (42-78); TOTAL CELLS COUNTED % (AUTO) 100 %; WHITE BLOOD COUNT 9.4 10^3/uL (4.0-10.5)
[2017-09-19 15:37] LABS: ALANINE AMINOTRANSFERASE 40 U/L (21-72); ALBUMIN 4.4 g/dL (3.5-5.0); ALKALINE PHOSPHATASE 59 U/L (38-126); ANION GAP 9 (5-19); ASPARTATE AMINO TRANSFERASE 25 U/L (17-59); BILIRUBIN,DIRECT 0.4 mg/dL (0.0-0.4); BILIRUBIN,TOTAL 0.5 mg/dL (0.2-1.3); BLOOD UREA NITROGEN 13 mg/dL (7-20); CALCIUM 9.7 mg/dL (8.4-10.2); CARBON DIOXIDE 28 mmol/L (22-30); CHLORIDE 102 mmol/L (98-107); CREATINE KINASE 156 U/L (55-170); GLUCOSE 85 mg/dL (75-110); POTASSIUM 4.1 mmol/L (3.6-5.0); SODIUM 139.4 mmol/L (137-145); TOTAL PROTEIN 7.8 g/dL (6.3-8.2)
[2017-09-19 15:49] LABS: CREATINE KINASE MB 2.26 ng/mL (<4.55); TROPONIN I 0.023 ng/mL
--- NOTE | 2017-09-19 15:54 | EKG REPORT ---
SEVERITY:- OTHERWISE NORMAL ECG - SINUS BRADYCARDIA : Confirmed by: Alma Delia Reyes 19-Sep-2017 15:52:35
--- NOTE | 2017-09-19 16:20 | RADIOLOGY REPORT (SQ) ---
EXAM DESCRIPTION: VENOUS UNILATERAL LOWER COMPLETED DATE/TIME: 09/19/2017 4:03 pm REASON FOR STUDY: left lower swelling COMPARISON: 03/03/2016 TECHNIQUE: Dynamic and static stahl scale and color images acquired of the left leg venous system. Se lected spectral images acquired with additional compression and augmentation maneuvers. The contralat eral common femoral vein and saphenofemoral junction were also imaged. Images stored on PACS. LIMITATIONS: None. FINDINGS: COMMON FEMORAL: Normal phasicity, compression and augmentation. No visualized echogenic ma terial on stahl scale. No defects on color images. FEMORAL: Normal compression and augmentation. No visualized echogenic material on stahl scale. No defe cts on color images. POPLITEAL: Normal compression, augmentation. No visualized echogenic material on stahl scale. No defec ts on color images. CALF VESSELS: Normal compression, augmentation. No visualized echogenic material on stahl scale. No de fects on color images. GSV and SSV: Normal compression, augmentation. No visualized echogenic material on stahl scale. No def ects on color images. ANY DEEP VENOUS INSUFFICIENCY: Not evaluated. ANY EVIDENCE OF POPLITEAL CYST: No. OTHER: No other significant finding. CONTRALATERAL COMMON FEMORAL VEIN AND SAPHENOFEMORAL JUNCTION: Normal phasicity, compression and augmentation. No visualized echogenic material on stahl scale. No de fects on color images. IMPRESSION: NO EVIDENCE OF DVT OR SVT IN THE LEFT LEG. COMMENT: Findings were discussed with the ordering physician at 1614 hours on this date. TECHNICAL DOCUMENTATION: JOB ID: [id number] [employer]- All Rights Reserved Reading location - IP/workstation name: [email or web address]
--- NOTE | 2017-09-19 16:29 | ER Document Report ---
ED General - General Chief Complaint: Nausea/Vomiting Stated Complaint: NAUSEA/ CHEST PAIN Time Seen by Provider: 09/19/17 14:49 Mode of Arrival: Ambulatory Information source: Patient Notes: 51-year-old male presents with complaints of chest pain, patient denies any fevers or chills admits to nausea vomiting diarrhea over the past 3 days noted to have epigastric burning sensation TRAVEL OUTSIDE OF THE [place] IN LAST 30 DAYS: No - HPI Onset: Just prior to arrival Onset/Duration: Sudden Quality of pain: Pressure Severity: Mild Pain Level: 1 Associated symptoms: Chest pain Exacerbated by: Denies Relieved by: Denies Similar symptoms previously: No Recently seen / treated by doctor: No - Related Data Allergies/Adverse Reactions: No Known Allergies Allergy (Verified 09/19/17 14:33) Past Medical History - Social History Smoking Status: Current Every Day Smoker Cigarette use (# per day): Yes Chew tobacco use (# tins/day): No Smoking Education Provided: No Frequency of alcohol use: Occasional Drug Abuse: None Family History: Arthritis, CAD, COPD, CVA, Hyperlipidemia, Hypertension, Malignancy Patient has suicidal ideation: No Patient has homicidal ideation: No - Past Medical History Cardiac Medical History: Reports: Hx Coronary Artery Disease, Hx DVT - 2016, Hx Heart Attack, Hx Hypertension Denies: Hx Atrial Fibrillation, Hx Congestive Heart Failure, Hx Hypercholesterolemia, Hx Pulmonary Embolism Pulmonary Medical History: Denies: Hx Asthma, Hx COPD, Hx Sleep Apnea Neurological Medical History: Denies: Hx Seizures Endocrine Medical History: Denies: Hx Diabetes Mellitus Type 1, Hx Diabetes Mellitus Type 2, Hx Hyperthyroidism, Hx Hypothyroidism Renal/ Medical History: Denies: Hx Peritoneal Dialysis GI Medical History: Reports: Hx Gastroesophageal Reflux Disease, Hx Colonoscopy , Hx Endoscopy. Denies: Hx Cirrhosis, Hx Hepatitis Musculoskeltal Medical History: Reports Hx Arthritis, Reports Hx Musculoskeletal Trauma - Fracture hand bilateral toes foot nose Psychiatric Medical History: Denies: Hx Depression Traumatic Medical History: Reports: Hx Fractures - Fracture hand bilateral toes foot nose Infectious Medical History: Denies: Hx Hepatitis Past Surgical History: Reports: Hx Appendectomy, Hx Cardiac Catheterization, Hx Orthopedic Surgery - R foot/knee, L hand, R arm, Hx Tonsillectomy, Other - Removal of foreign body from my. Denies: Hx Pacemaker - Immunizations Immunizations up to date: No - tetnus given in ED Hx Diphtheria, Pertussis, Tetanus Vaccination: Yes Review of Systems - Review of Systems Notes: REVIEW OF SYSTEMS: CONSTITUTIONAL : Denies fever, chills, or sweats. Denies recent illness. EENT: Denies eye, ear, throat, or mouth pain or symptoms. Denies nasal or sinus congestion or discharge. Denies throat, tongue, or mouth swelling or difficulty swallowing. CARDIOVASCULAR: Admits to chest RESPIRATORY: Denies cough, cold, or chest congestion. Denies shortness of breath, difficulty breathing, or wheezing. GASTROINTESTINAL: Denies abdominal pain or distention. Denies nausea, vomiting , or diarrhea. Denies blood in vomitus, stools, or per rectum. Denies black, tarry stools. Denies constipation. GENITOURINARY: Denies difficulty urinating, painful urination, burning, frequency, blood in urine, or discharge. MUSCULOSKELETAL: Denies back or neck pain or stiffness. Denies joint pain or swelling. SKIN: Left foot swelling HEMATOLOGIC : Denies easy bruising or bleeding. LYMPHATIC: Denies swollen, enlarged glands. NEUROLOGICAL: Denies confusion or altered mental status. Denies passing out or loss of consciousness. Denies dizziness or lightheadedness. Denies headache. Denies weakness or paralysis or loss of use of either side. Denies problems with gait or speech. Denies sensory loss, numbness, or tingling. Denies seizures. PSYCHIATRIC: Denies anxiety or stress. Denies depression, suicidal ideation, or homicidal ideation. ALL OTHER SYSTEMS REVIEWED AND NEGATIVE. Dictation was performed using [employer] voice recognition software PHYSICAL EXAMINATION: GENERAL: Well-appearing, well-nourished and in no acute distress. HEAD: Atraumatic, normocephalic. EYES: Pupils equal round and reactive to light, extraocular movements intact, sclera anicteric, conjunctiva are normal. ENT: Nares patent, oropharynx clear without exudates. Moist mucous membranes. NECK: Normal range of motion, supple without lymphadenopathy LUNGS: Breath sounds clear to auscultation bilaterally and equal. No wheezes rales or rhonchi. HEART: Regular rate and rhythm without murmurs ABDOMEN: Soft, nontender, nondistended abdomen. No guarding, no rebound. No masses appreciated. Musculoskeletal: Normal range of motion, no pitting or edema. No cyanosis. NEUROLOGICAL: Cranial nerves grossly intact. Normal speech, normal gait. Normal sensory, motor exams PSYCH: Normal mood, normal affect. SKIN: Warm, Dry, normal turgor, no rashes or lesions noted. Physical Exam - Vital signs Vitals: Temp Pulse Resp BP Pulse Ox 98.6 F 58 L 16 133/81 H 96 09/19/17 14:37 09/19/17 14:37 09/19/17 14:37 09/19/17 14:37 09/19/17 14:37 Course - Re-evaluation Re-evalutation: 09/19/17 16:29 [facility] paged no answer 09/19/17 16:45 [facility] called , pt did have NSTEMI but there were no blockages and medical managment was all that was needed 09/19/17 16:47 - Vital Signs Vital signs: Temp Pulse Resp BP Pulse Ox 98.6 F 58 L 16 133/81 H 97 09/19/17 14:37 09/19/17 14:37 09/19/17 14:37 09/19/17 14:37 09/19/17 16:06 - Laboratory Result Diagrams: 09/19/17 15:06 09/19/17 15:06 Laboratory results interpreted by me: 09/19/17 15:06 RDW 14.5 H Discharge - Discharge Clinical Impression: Chest pain Qualifiers: Chest pain type: unspecified Qualified Code(s): R07.9 - Chest pain, unspecified CAD (coronary artery disease) Qualifiers: Coronary Disease-Associated Artery/Lesion type: unspecified vessel or lesion type [place] vs. transplanted heart: [place] heart Associated angina: without angina Qualified Code(s): I25.10 - Atherosclerotic heart disease of [place] coronary artery without angina pectoris Condition: Stable Disposition: ADMITTED OBSERVATION Admitting Provider: Hospitalist Unit Admitted: Telemetry
[2017-09-19] MEDS ORDERED: ACETAMINOPHEN 325 MG TABLET PO PRN (17:54)
[2017-09-19] MEDS ORDERED: ONDANSETRON HCL INJ/PF 4 MG/2 ML SDV IV PRN (17:54)
--- NOTE | 2017-09-19 18:17 | PDOC H&P ---
History of Present Illness Admission Date/PCP: 09/19/17 17:07 FAIZA GUERRERO MD Patient complains of: Chest pain and left foot pain History of Present Illness: MAX LLANOS JR is a 51 year old male resented to hospital with complaint of chest pain. Patient states the chest pain began today. Patient states he was short of breath and nauseated. Patient states that the real reason why he came to the emergency room was because his left foot was hurting. Patient reports that he has been evaluated for coronary artery disease invited where he underwent a cardiac cath that demonstrated essentially normal vessels. ER has also documented that they called by the cardiology and cardiology stated that patient's chest pain is not cardiac. Past Medical History Cardiac Medical History: Reports: Coronary Artery Disease, DVT - 2016, Myocardial Infarction, Hypertension Denies: Atrial Fibrillation, Congestive Heart Failure, Hyperlipidema, Pulmonary Embolism Pulmonary Medical History: Denies: Asthma, Chronic Obstructive Pulmonary Disease (COPD), Sleep Apnea Neurological Medical History: Denies: Seizures Endocrine Medical History: Denies: Diabetes Mellitus Type 1, Diabetes Mellitus Type 2, Hyperthyroidism, Hypothyroidism GI Medical History: Reports: Gastroesophageal Reflux Disease Denies: Cirrhosis, Hepatitis Musculoskeltal Medical History: Reports: Arthritis Psychiatric Medical History: Denies: Depression Hematology: Denies: Anemia Past Surgical History Past Surgical History: Reports: Appendectomy, Cardiac Catheterization, Orthopedic Surgery - R foot/knee, L hand, R arm, Tonsillectomy, Other - Removal of foreign body from my Denies: Pacemaker Social History Smoking Status: Current Every Day Smoker Frequency of Alcohol Use: Occasional Hx Recreational Drug Use: No Drugs: None Hx Prescription Drug Abuse: No - Advance Directive Resuscitation Status: Full Code Family History Family History: Arthritis, CAD, COPD, CVA, Hyperlipidemia, Hypertension, Malignancy Parental Family History Reviewed: Yes Children Family History Reviewed: Yes Sibling(s) Family History Reviewed.: Yes Medication/Allergy Home Medications: Aspirin [Aspirin EC] 81 mg PO DAILY 02/08/17 Omeprazole 40 mg PO DAILY 02/08/17 Allergies/Adverse Reactions: No Known Allergies Allergy (Verified 09/19/17 14:33) Review of Systems Constitutional: ABSENT: chills, fever(s), headache(s), weight gain, weight loss Eyes: ABSENT: visual disturbances Ears: ABSENT: hearing changes Cardiovascular: PRESENT: chest pain. ABSENT: dyspnea on exertion, edema, orthropnea, palpitations Respiratory: ABSENT: cough, hemoptysis Gastrointestinal: ABSENT: abdominal pain, constipation, diarrhea, hematemesis, hematochezia, nausea, vomiting Genitourinary: ABSENT: dysuria, hematuria Musculoskeletal: PRESENT: joint swelling - Left foot tenderness Integumentary: ABSENT: rash, wounds Neurological: ABSENT: abnormal gait, abnormal speech, confusion, dizziness, focal weakness, syncope Psychiatric: ABSENT: anxiety, depression, homidical ideation, suicidal ideation Endocrine: ABSENT: cold intolerance, heat intolerance, polydipsia, polyuria Hematologic/Lymphatic: ABSENT: easy bleeding, easy bruising Physical Exam Vital Signs: Temp Pulse Resp BP Pulse Ox 98.6 F 58 L 16 133/81 H 97 09/19/17 14:37 09/19/17 14:37 09/19/17 14:37 09/19/17 14:37 09/19/17 16:06 General appearance: PRESENT: no acute distress, well-developed, well-nourished Head exam: PRESENT: atraumatic, normocephalic Eye exam: PRESENT: conjunctiva pink, EOMI. ABSENT: scleral icterus Ear exam: PRESENT: normal external ear exam Mouth exam: PRESENT: moist, tongue midline Neck exam: ABSENT: carotid bruit, JVD, lymphadenopathy, thyromegaly Respiratory exam: PRESENT: clear to auscultation ashleigh. ABSENT: rales, rhonchi, wheezes Cardiovascular exam: PRESENT: RRR. ABSENT: diastolic murmur, rubs, systolic murmur Pulses: PRESENT: normal dorsalis pedis pul Vascular exam: PRESENT: normal capillary refill GI/Abdominal exam: PRESENT: normal bowel sounds, soft. ABSENT: distended, guarding, mass, organolmegaly, rebound, tenderness Rectal exam: PRESENT: deferred Extremities exam: ABSENT: calf tenderness, clubbing, pedal edema Neurological exam: PRESENT: alert, awake, oriented to person, oriented to place , oriented to time, oriented to situation, CN II-XII grossly intact. ABSENT: motor sensory deficit Psychiatric exam: PRESENT: appropriate affect, normal mood. ABSENT: homicidal ideation, suicidal ideation Skin exam: PRESENT: dry, intact, warm. ABSENT: cyanosis, rash Results Impressions: Venous Doppler Study 09/19/17 15:00 IMPRESSION: NO EVIDENCE OF DVT OR SVT IN THE LEFT LEG. Assessment & Plan - Diagnosis (1) Chest pain Is this a current diagnosis for this admission?: Yes Plan: Noncardiac: Patient had a cardiac cath January 2017 invited that demonstrated no significant disease. Will try to obtain records. Will have cardiology evaluate patient. (2) Tendinitis of ankle Is this a current diagnosis for this admission?: Yes Plan: Supportive care will write for Lidoderm patch. X ray Left foot. (3) NSTEMI (non-ST elevation myocardial infarction) Is this a current diagnosis for this admission?: Yes Plan: History of NSTEMI: Supportive care. (4) History of DVT (deep vein thrombosis) Is this a current diagnosis for this admission?: Yes Plan: SCDs (5) Tobacco dependency Is this a current diagnosis for this admission?: Yes Plan: Nicotine - Time Time Spent: 30 to 50 Minutes
--- NOTE | 2017-09-19 19:02 | RADIOLOGY REPORT (SQ) ---
EXAM DESCRIPTION: FOOT LEFT 2 VIEWS COMPLETED DATE/TIME: 09/19/2017 6:26 pm REASON FOR STUDY: left foot pain COMPARISON: None. NUMBER OF VIEWS: Two views TECHNIQUE: AP and lateral radiographic images acquired of the left foot. LIMITATIONS: None. FINDINGS: MINERALIZATION: Normal. BONES: No acute fracture or dislocation. No worrisome bone lesions. Separate bony ossicles are iden tified at the level of the navicular and talar tarsal bones. JOINTS: No effusions. SOFT TISSUES: No soft tissue swelling. No foreign body. OTHER: Minimal Achilles tendon and plantar spurring is identified. IMPRESSION: NEGATIVE STUDY OF THE LEFT FOOT. NO RADIOGRAPHIC EVIDENCE OF ACUTE INJURY. TECHNICAL DOCUMENTATION: JOB ID: [id number] [employer]- All Rights Reserved Reading location - IP/workstation name: [email or web address]
[2017-09-19 23:26] LABS: CHOLESTEROL 188.67 mg/dL (0-200); TRIGLYCERIDES 167 mg/dL (<150)
[2017-09-19 23:36] LABS: DIRECT LDL 114 mg/dL (<100)
[2017-09-19 23:46] LABS: VLDL CHOLESTEROL 33.4 mg/dL (10-31)
[2017-09-20] MEDS ORDERED: LANSOPRAZOLE 30 MG TAB.RAP.DR PO SCH (06:00)
[2017-09-20 07:10] LABS: ABSOLUTE BASOPHILS # (AUTO) 0.1 10^3/uL (0.0-0.2); ABSOLUTE EOSINOPHILS # (AUTO) 0.3 10^3/uL (0.0-0.6); ABSOLUTE LYMPHOCYTES (AUTO) 2.7 10^3/uL (0.5-4.7); ABSOLUTE NEUT (AUTO) 6.7 10^3/uL (1.7-8.2); BASOPHILS % (AUTO) 1.1 % (0-2); EOSINOPHILS % (AUTO) 2.9 % (0-6); HEMOGLOBIN 16.4 g/dL (13.5-17.0); MEAN CORPUSCULAR HEMOGLOBIN 30.4 pg (27.0-33.4); MEAN CORPUSCULAR HGB CONC 33.5 g/dL (32.0-36.0); MEAN CORPUSCULAR VOLUME 91 fl (80-97); PLATELET COUNT 267 10^3/uL (150-450); RED BLOOD COUNT 5.39 10^6/uL (4.35-5.55); RED CELL DISTRIBUTION WIDTH 14.3 % (11.5-14.0); TOTAL CELLS COUNTED % (AUTO) 100 %; WHITE BLOOD COUNT 10.7 10^3/uL (4.0-10.5)
[2017-09-20 07:36] LABS: ALANINE AMINOTRANSFERASE 39 U/L (21-72); ALBUMIN 3.9 g/dL (3.5-5.0); ALKALINE PHOSPHATASE 49 U/L (38-126); ANION GAP 11 (5-19); ASPARTATE AMINO TRANSFERASE 27 U/L (17-59); BILIRUBIN,DIRECT 0.4 mg/dL (0.0-0.4); BILIRUBIN,TOTAL 0.4 mg/dL (0.2-1.3); BLOOD UREA NITROGEN 15 mg/dL (7-20); CALCIUM 9.5 mg/dL (8.4-10.2); CARBON DIOXIDE 23 mmol/L (22-30); CHLORIDE 107 mmol/L (98-107); CHOLESTEROL 172.46 mg/dL (0-200); GLUCOSE 95 mg/dL (75-110); POTASSIUM 4.7 mmol/L (3.6-5.0); SODIUM 140.5 mmol/L (137-145); TOTAL PROTEIN 6.9 g/dL (6.3-8.2); TRIGLYCERIDES 209 mg/dL (<150)
[2017-09-20 07:47] LABS: DIRECT LDL 101 mg/dL (<100)
[2017-09-20 07:50] LABS: VLDL CHOLESTEROL 41.8 mg/dL (10-31)
--- NOTE | 2017-09-20 09:04 | EKG REPORT ---
SEVERITY:- NORMAL ECG - SINUS RHYTHM : Confirmed by: Alma Delia Reyes 20-Sep-2017 09:02:22
[2017-09-20 09:05] VITALS: BP 103/65
[2017-09-20] MEDS ORDERED: LIDOCAINE 5% (700 MG) TRANSDERMAL ADH..PATCH TP SCH (10:00)
[2017-09-20] MEDS ORDERED: NICOTINE 21 MG/24 HR PATCH.TD24 TD SCH (10:00)
--- NOTE | 2017-09-20 12:47 | PDOC CONSULTATION ---
Consultation Consult Date: 09/19/17 Attending physician:: RANDY FOLEY History of Present Illness Admission Date/PCP: 09/19/17 17:07 FAIZA GUERRERO MD Patient complains of: Chest pain History of Present Illness: MAX LLANOS JR is a 51 year old male resented to hospital with complaint of chest pain. Patient states the chest pain began today. Patient states he was short of breath and nauseated. Patient states that the real reason why he came to the emergency room was because his left foot was hurting. Patient reports that he has been evaluated for coronary artery disease invited where he underwent a cardiac cath that demonstrated essentially normal vessels. ER has also documented that they called by the cardiology and cardiology stated that patient's chest pain is not cardiac. Patient on my questioning described the chest pain is located in the left side lower chest area. Best description he can give is more of aching. Patient does describe prior history of myocardial infarction. He denied any exertional component to the chest discomfort. Patient was admitted for further evaluation and management. I was consulted to evaluate his chest pain. Past Medical History Cardiac Medical History: Reports: Coronary Artery Disease, DVT - 2016, Myocardial Infarction, Hypertension Denies: Atrial Fibrillation, Congestive Heart Failure, Hyperlipidema, Pulmonary Embolism Pulmonary Medical History: Denies: Asthma, Chronic Obstructive Pulmonary Disease (COPD), Sleep Apnea Neurological Medical History: Denies: Seizures Endocrine Medical History: Denies: Diabetes Mellitus Type 1, Diabetes Mellitus Type 2, Hyperthyroidism, Hypothyroidism GI Medical History: Reports: Gastroesophageal Reflux Disease Denies: Cirrhosis, Hepatitis Musculoskeltal Medical History: Reports: Arthritis Psychiatric Medical History: Denies: Depression Hematology: Denies: Anemia Past Surgical History Past Surgical History: Reports: Appendectomy, Cardiac Catheterization, Orthopedic Surgery - R foot/knee, L hand, R arm, Tonsillectomy, Other - Removal of foreign body from my Denies: Pacemaker Social History Information Source: Patient Smoking Status: Current Every Day Smoker Frequency of Alcohol Use: Occasional Hx Recreational Drug Use: No Drugs: None Hx Prescription Drug Abuse: No - Advance Directive Resuscitation Status: Full Code Family History Family History: Arthritis, CAD, COPD, CVA, Hyperlipidemia, Hypertension, Malignancy Parental Family History Reviewed: Yes Children Family History Reviewed: Yes Sibling(s) Family History Reviewed.: Yes Medication/Allergy Home Medications: Aspirin [Aspirin EC] 81 mg PO DAILY 09/19/17 Esomeprazole Magnesium [Nexium] 40 mg PO DAILY 09/19/17 Atorvastatin Calcium [Lipitor 40 mg Tablet] 40 mg PO QHS #30 tablet 09/20/17 Nicotine [Nicoderm 21 mg/24 Hr Transderm Patch] 1 each TD DAILY #30 patch.[email or web address] 09/20/17 Allergies/Adverse Reactions: No Known Allergies Allergy (Verified 09/19/17 14:33) Review of Systems Review of Systems: Please see history of present illness and past medical history as wall. Constitutional: No fever or chills reported. Head : No recent chronic headaches, recent head injury. Eyes: No recent eye pain, diplopia, redness, discharge, acute visual changes. Ears: No recent chronic ear pain, acute hearing loss, ear discharge. Oral cavity: No recent ulcerations, bleeding, oral cavity discomfort. Neck: No recent acute neck pain reported. Hematologic: No recent easy bruising or bleeding or hematologic malignancy reported. Lymphatic: No recent lymphatic malignancy, chronic lymphadenopathy reported yet Cardiovascular system review: See history of present illness. Respiratory system review: No recent chronic cough, hemoptysis, blood clots in the lungs reported. Mild Shortness of breath on exertion Gastrointestinal system review: Negative for any recent acute or chronic abdominal pain, hematemesis, melena, recent change in bowel habits. Genitourinary system review: No recent acute or chronic hematuria, flank pain, UTI etc. reported. Skin system review: Negative for any recent abnormal bruising, no rash, no pruritus reported. Neurologic: No prior history of strokes, mini strokes, seizure disorder. Psychologic: No history of major psychosis or major depression reported. Musculoskeletal: Minor aches and pains reported. No acute joint swelling reported. Endocrine: No recent polyuria, polydipsia, recent heat or cold intolerance. Physical Exam Vital Signs: Temp Pulse Resp BP Pulse Ox 98.6 F 58 L 12 120/74 95 09/19/17 14:37 09/19/17 14:37 09/19/17 18:01 09/19/17 18:01 09/19/17 18:01 Results Laboratory Results: 09/19/17 18:20 Troponin I 0.030 EKG Comments: Shows sinus rhythm, no acute ST-T wave changes are noted. Impressions: Foot X-Ray 09/19/17 00:00 IMPRESSION: NEGATIVE STUDY OF THE LEFT FOOT. NO RADIOGRAPHIC EVIDENCE OF ACUTE INJURY. Venous Doppler Study 09/19/17 15:00 IMPRESSION: NO EVIDENCE OF DVT OR SVT IN THE LEFT LEG. Assessment & Plan - Diagnosis (1) Chest pain Qualifiers: Chest pain type: unspecified Qualified Code(s): R07.9 - Chest pain, unspecified Is this a current diagnosis for this admission?: Yes (2) CAD (coronary artery disease) Qualifiers: Coronary Disease-Associated Artery/Lesion type: unspecified vessel or lesion type [place] vs. transplanted heart: [place] heart Associated angina: without angina Qualified Code(s): I25.10 - Atherosclerotic heart disease of [place] coronary artery without angina pectoris (3) HTN (hypertension) Qualifiers: Hypertension type: essential hypertension Qualified Code(s): I10 - Essential (primary) hypertension Is this a current diagnosis for this admission?: Yes (4) History of DVT (deep vein thrombosis) Is this a current diagnosis for this admission?: Yes (5) Tobacco dependency Is this a current diagnosis for this admission?: Yes - Notes Notes: Chest pain: Patient describes prior history of myocardial infarction. He also describes having had a heart catheterization about a year ago. Feel that it is worthwhile to evaluate this further with a 2D echocardiogram and a nuclear stress test. Will also recommend a CTA of the chest to look for any noncardiac chest pain. Need to rule out pulmonary embolism in view of history of prior DVT. Coronary artery disease: Patient describes history of prior myocardial infarction. Recommend treatment with beta blockers statin MAKAYLA inhibitor/ARB. Hypertension: Reasonably well controlled. Blood pressure goal in this patient is 135/85 or less. This was discussed with the patient. Currently blood pressure under reasonable control. Better medication for this patient are MAKAYLA inhibitor/ARB/beta cristian etc. discussed side effects of uncontrolled hypertension and also severe hypotension. Patient has history of chronic smoking. Patient advised to quit smoking. History of deep venous thrombosis: Venous duplex study was evaluated. Patient to report any recurrence of leg discomfort etc. - Time Time Spent: 30 to 50 Minutes - CODE STATUS was discussed, patient remains full code. Surrogate decision-maker unchanged. Multiple medical problems were addressed. More than 50% of the time spent coordinating care, discussing management plans with involved caregivers. Management plans discussed with involved personnels. Medical decision making was of moderate to high complexity , patient's has multiple comorbidities. Medications reviewed and adjusted accordingly: Yes
--- NOTE | 2017-09-20 13:29 | XCELERA REPORT ---
[address] [address] Transthoracic Echocardiogram Report Name: MAX LLANOS JR Age: 51 yrs Gender: Male : 1965 Patient Status: Inpatient Patient Location: [address] [place] [address] Study Date: 09/20/2017 11:14 AM Height: 71 in Weight: 250 lb BSA: 2.3 m2 Procedure: A complete two-dimensional transthoracic echocardiogram was performed (2D, M-mode, spectral and color flow Doppler). The study was technically difficult with many images being suboptimal in quality. Reason For Study: CP Ordering Physician: ALMA DELIA MYERS Performed By: Sophie Sánchez Interpretation Summary The left ventricular ejection fraction is normal. There is borderline concentric left ventricular hypertrophy. Doppler measurements suggest impaired left ventricular relaxation, which is associated with grade I/IV or mild diastolic dysfunction The left ventricle is grossly normal size. Wall motion cannot be accurately commented on, but no definite regional wall motion abnormalities noted. The right ventricular systolic function is normal. The left atrium is mildly dilated. The right atrium is normal in size There is a trace amount of mitral regurgitation There is no mitral valve stenosis. No aortic regurgitation is present. There is no aortic valve stenosis No tricuspid regurgitation. There is no tricuspid stenosis. The aortic root is not well visualized but is probably normal size. The inferior vena cava was not well visualized There is no pericardial effusion. MMode/2D Measurements & Calculations RVDd: 3.7 cm LVIDd: 5.2 cm FS: 36.3 % Ao root diam: 4.1 cm IVSd: 0.90 cm LVIDs: 3.3 cm EDV(Teich): 129.2 ml LVPWd: 0.89 cm ESV(Teich): 44.4 ml Ao root area: 13.1 cm2 EF(Teich): 65.6 % LA dimension: 3.8 cm LVOT diam: 3.0 cm LVOT area: 7.0 cm2 Doppler Measurements & Calculations MV E max gemma: MV P1/2t max gemma: Ao V2 max: LV V1 max P.8 cm/sec 52.8 cm/sec 101.8 cm/sec 3.9 mmHg MV A max gemma: MV P1/2t: 66.4 msec Ao max PG: LV V1 max: 50.3 cm/sec MVA(P1/2t): 3.3 cm2 4.1 mmHg 98.3 cm/sec MV E/A: 1.0 MV dec slope: KEZIA(V,D): 6.8 cm2 232.7 cm/sec2 PA V2 max: 80.9 cm/sec PA max P.6 mmHg Left Ventricle The left ventricle is grossly normal size. There is borderline concentric left ventricular hypertrophy. The left ventricular ejection fraction is normal. Doppler measurements suggest impaired left ventricular relaxation, which is associated with grade I/IV or mild diastolic dysfunction. Wall motion cannot be accurately commented on, but no definite regional wall motion abnormalities noted. Right Ventricle The right ventricle is grossly normal size. There is normal right ventricular wall thickness. The right ventricular systolic function is normal. Atria The right atrium is normal in size. The left atrium is mildly dilated. Interarterial septum not well visualized and not well dopplered. Cannot comment on ASD/PFO presence. Mitral Valve The mitral valve is grossly normal. There is no mitral valve stenosis. There is a trace amount of mitral regurgitation. Aortic Valve The aortic valve is grossly normal. There is no aortic valve stenosis. No aortic regurgitation is present. Tricuspid Valve The tricuspid valve is not well visualized, but is grossly normal. There is no tricuspid stenosis. No tricuspid regurgitation. Pulmonic Valve The pulmonic valve is not well visualized. Great Vessels The aortic root is not well visualized but is probably normal size. The inferior vena cava was not well visualized. Effusions There is no pericardial effusion. : ALMA DELIA MYERS > Alma Delia Myers
--- NOTE | 2017-09-20 16:55 | PDOC DISCHARGE SUMMARY ---
General - Admit/Disc Date/PCP Admission Date/Primary Care Provider: 09/19/17 17:07 FAIZA GUERRERO MD Discharge Date: 09/20/17 - Discharge Diagnosis (1) Chest pain Is this a current diagnosis for this admission?: Yes Summary: Presented with chest pain, resolved at discharge - nSTEMi based on elevated trops and no EKG changes - Trops appropriately downtrended, likely due to Type 2 demand ischemia - Patient previously had cardiac cath January 2017 which was noted to not have significant disease - Seen by cardiology this admission, who agreed with optomizing medical management - Continue ASA 81mg daily - Script given for Atorvastatin 40mg qhs (2) Tendinitis of ankle Is this a current diagnosis for this admission?: Yes Summary: Acute onset, noted to have bump on top of foot. Denies history of gout or cellulitis. No recent trauma to foot. Left foot xray negative for acute pathology - Foot feeling better today. Able to ambulate without issue. Outpatient plan - Continue supportive care (3) CAD (coronary artery disease) Is this a current diagnosis for this admission?: No Summary: Per above (4) Tobacco dependency Is this a current diagnosis for this admission?: Yes Summary: Current smoker, script for nicotene patch given - Additional Information Resuscitation Status: Full Code Discharge Diet: Cardiac Discharge Activity: Activity As Tolerated Prescriptions: Atorvastatin Calcium [Lipitor 40 mg Tablet] 40 mg PO QHS #30 tablet Nicotine [Nicoderm 21 mg/24 Hr Transderm Patch] 1 each TD DAILY #30 patch.td24 Home Medications: Aspirin [Aspirin EC] 81 mg PO DAILY 09/19/17 Esomeprazole Magnesium [Nexium] 40 mg PO DAILY 09/19/17 Atorvastatin Calcium [Lipitor 40 mg Tablet] 40 mg PO QHS #30 tablet 09/20/17 Nicotine [Nicoderm 21 mg/24 Hr Transderm Patch] 1 each TD DAILY #30 patch.td24 09/20/17 History of Present Illness Patient complains of: chest pain and foot pain History of Present Illness: MAX LLANOS JR is a 51 year old male who presented to hospital with complaint of chest pain. Patient states the chest pain began today. Patient states he was short of breath and nauseated. Patient states that the real reason why he came to the emergency room was because his left foot was hurting. Patient reports that he has been evaluated for coronary artery disease invited where he underwent a cardiac cath that demonstrated essentially normal vessels. ER has also documented that they called by the cardiology and cardiology stated that patient's chest pain is not cardiac. Chest pain is located in the left side lower chest area. Best description he can give is more of aching. Patient does describe prior history of myocardial infarction. He denied any exertional component to the chest discomfort. Physical Exam Vital Signs: Temp Pulse Resp BP Pulse Ox 98.0 F 51 L 12 103/65 95 09/20/17 12:01 09/20/17 12:01 09/20/17 12:01 09/20/17 07:35 09/20/17 12:01 Intake & Output 09/19/17 09/20/17 09/21/17 06:59 06:59 06:59 Intake Total 542 Balance 542 Weight 113.8 kg General appearance: PRESENT: no acute distress, cooperative, obese Head exam: PRESENT: atraumatic, normocephalic Mouth exam: PRESENT: moist Neck exam: PRESENT: full ROM Respiratory exam: PRESENT: unlabored Cardiovascular exam: PRESENT: RRR, +S1, +S2. ABSENT: systolic murmur, tachycardia GI/Abdominal exam: PRESENT: soft. ABSENT: tenderness Neurological exam: PRESENT: alert, awake, CN II-XII grossly intact Psychiatric exam: PRESENT: appropriate affect, normal mood Skin exam: PRESENT: dry Results Laboratory Results: 09/20/17 06:49 09/20/17 06:49 09/19/17 09/20/17 09/20/17 18:20 06:49 06:49 WBC 10.7 H RBC 5.39 Hgb 16.4 Hct 49.0 MCV 91 MCH 30.4 MCHC 33.5 RDW 14.3 H Plt Count 267 Seg Neutrophils % 62.0 Lymphocytes % 25.0 Monocytes % 9.0 Eosinophils % 2.9 Basophils % 1.1 Absolute Neutrophils 6.7 Absolute Lymphocytes 2.7 Absolute Monocytes 1.0 Absolute Eosinophils 0.3 Absolute Basophils 0.1 Sodium 140.5 Potassium 4.7 Chloride 107 Carbon Dioxide 23 Anion Gap 11 BUN 15 Creatinine 0.82 Est GFR ( Amer) > 60 Est GFR (Non-Af Amer) > 60 Glucose 95 Calcium 9.5 Total Bilirubin 0.4 AST 27 ALT 39 Alkaline Phosphatase 49 Total Protein 6.9 Albumin 3.9 Triglycerides 167 H 209 H Cholesterol 188.67 172.46 LDL Cholesterol Direct 114 H 101 H VLDL Cholesterol 33.4 H 41.8 H HDL Cholesterol 53 40 09/19/17 09/20/17 09/20/17 18:20 00:25 06:49 Troponin I 0.030 0.016 < 0.012 Impressions: Foot X-Ray 09/19/17 00:00 IMPRESSION: NEGATIVE STUDY OF THE LEFT FOOT. NO RADIOGRAPHIC EVIDENCE OF ACUTE INJURY. Venous Doppler Study 09/19/17 15:00 IMPRESSION: NO EVIDENCE OF DVT OR SVT IN THE LEFT LEG. Qualifiers - * PATEINT BEING DISCHARGED WITH ANY OF THE FOLLOWING DIAGNOSIS?: No
[2017-09-20] MEDS ORDERED: ATORVASTATIN CALCIUM 20 MG TABLET PO SCH (22:00)
== END 2017-09-20 13:11 | disposition home or self-care (01) ==
LOC: ER 14:29 → EH 17:07 → 4S 19:05
PROVIDERS: ADMIT Emergency Medicine; ATTEND Emergency Medicine
DX: R07.89 Other chest pain (principal); I21.4 Non-ST elevation (NSTEMI) myocardial infarction; M77.52 Other enthesopathy of left foot and ankle; F17.210 Nicotine dependence, cigarettes, uncomplicated; I10 Essential (primary) hypertension; R06.02 Shortness of breath; R11.0 Nausea; I25.2 Old myocardial infarction; M19.90 Unspecified osteoarthritis, unspecified site; K21.9 Gastro-esophageal reflux disease without esophagitis; Z86.718 Personal history of other venous thrombosis and embolism; Z90.49 Acquired absence of other specified parts of digestive tract; Z98.890 Other specified postprocedural states; Z82.49 Family history of ischemic heart disease and other diseases of the circulatory system; Z79.82 Long term (current) use of aspirin
CPT/HCPCS: 36415; 80053; 80061; 82550; 82553; 83036; 84443; 84484; 85025; 93005; 93010; 93306; 93971; 99285

== ENCOUNTER → 2018-03-20 | Outpatient (CLI) | payer BC ==
--- NOTE | 2018-03-20 12:25 | RADIOLOGY REPORT (SQ) ---
EXAM DESCRIPTION: SACRUM AND COCCYX COMPLETED DATE/TIME: 03/20/2018 11:48 am REASON FOR STUDY: SACRAL BACK PAIN COMPARISON: None. NUMBER OF VIEWS: Three views. TECHNIQUE: AP, lateral, and tilt views of the sacrum and coccyx. LIMITATIONS: Study is limited somewhat due to gas and fecal material in the rectosigmoid overlying t he sacrum on the AP views. FINDINGS: MINERALIZATION: Normal. BONES: No acute fracture or dislocation. No worrisome bone lesions. SOFT TISSUES: No soft tissue swelling. No foreign body. OTHER: No other significant finding. IMPRESSION: NEGATIVE STUDY OF THE SACRUM AND COCCYX. TECHNICAL DOCUMENTATION: JOB ID: [id number] [employer]- All Rights Reserved Reading location - IP/workstation name: [email or web address]
== END ==
LOC: RAD 10:49
PROVIDERS: ATTEND Nurse Practitioner Family
DX: M53.3 Sacrococcygeal disorders, not elsewhere classified (principal)
CPT/HCPCS: 72220

== ENCOUNTER → 2018-04-04 | Outpatient (CLI) | payer BC ==
--- NOTE | 2018-04-04 15:18 | RADIOLOGY REPORT (SQ) ---
EXAM DESCRIPTION: LUMBAR SPINE COMPLETE COMPLETED DATE/TIME: 04/04/2018 2:11 pm REASON FOR STUDY: ACUTE RIGHT-SIDED LBP WITHOUT SCIATICA COMPARISON: None. NUMBER OF VIEWS: Five views including obliques. TECHNIQUE: AP, lateral, oblique, and sacral radiographic images acquired of the lumbar spine. LIMITATIONS: None. FINDINGS: MINERALIZATION: Normal. SEGMENTATION: Normal. No transitional anatomy. ALIGNMENT: Normal. VERTEBRAE: Maintained height. No fracture or worrisome bone lesion. DISCS: Slight narrowing at L1-2 and L2-3. Small marginal osteophytes at several levels. POSTERIOR ELEMENTS: Hypertrophic facet changes at L5-S1. HARDWARE: None in the spine. PARASPINAL SOFT TISSUES: Normal. PELVIS: Intact as visualized. No fractures or worrisome bone lesions. SI joints intact. OTHER: No other significant finding. IMPRESSION: Mild degenerative disc changes, spondylosis, and facet arthropathy. TECHNICAL DOCUMENTATION: JOB ID: [id number] [employer]- All Rights Reserved Reading location - IP/workstation name: [email or web address]
== END ==
LOC: OD 13:58
PROVIDERS: ATTEND Nurse Practitioner Family
DX: M54.5 Low back pain (principal); M47.896 Other spondylosis, lumbar region
CPT/HCPCS: 72110

== ENCOUNTER 2019-06-04 17:22 | Emergency (ER) | payer OTHER, BC ==
[2019-06-04] MEDS ORDERED: TETRACAINE HCL 0.5% OPH SOLN 4 ML OS ONE (17:42)
--- NOTE | 2019-06-04 17:46 | ER Document Report ---
HPI - HPI Time Seen by Provider: 06/04/19 17:36 Pain Level: 4 Context: 53-year-old male presents the emergency department with a left eye injury sustained at work just prior to arrival. Patient was putting [place] decorations on a shelf when he fell and struck him in the eye. He is to the object had a point to it. Patient complains of acute pain, mildly blurry vision, but no eye entrapment. Patient does not wear corrective lenses. - REPRODUCTIVE Reproductive: DENIES: : Past Medical History - Social History Smoking Status: Current Every Day Smoker Chew tobacco use (# tins/day): No Frequency of alcohol use: Occasional Drug Abuse: None Family History: Arthritis, CAD, COPD, CVA, Hyperlipidemia, Hypertension, Malignancy Patient has suicidal ideation: No Patient has homicidal ideation: No - Past Medical History Cardiac Medical History: Reports: Hx Coronary Artery Disease, Hx DVT - 2016, Hx Heart Attack, Hx Hypertension Denies: Hx Atrial Fibrillation, Hx Congestive Heart Failure, Hx Hypercholesterolemia, Hx Pulmonary Embolism Pulmonary Medical History: Denies: Hx Asthma, Hx COPD, Hx Sleep Apnea Neurological Medical History: Denies: Hx Seizures Endocrine Medical History: Denies: Hx Diabetes Mellitus Type 1, Hx Diabetes Mellitus Type 2, Hx Hyperthyroidism, Hx Hypothyroidism Renal/ Medical History: Denies: Hx Peritoneal Dialysis GI Medical History: Reports: Hx Gastroesophageal Reflux Disease, Hx Colonoscopy, Hx Endoscopy. Denies: Hx Cirrhosis, Hx Hepatitis Musculoskeletal Medical History: Reports Hx Arthritis, Reports Hx Musculoskeletal Trauma - Fracture hand bilateral toes foot nose Psychiatric Medical History: Denies: Hx Depression Traumatic Medical History: Reports: Hx Fractures - Fracture hand bilateral toes foot nose Infectious Medical History: Denies: Hx Hepatitis Past Surgical History: Reports: Hx Appendectomy, Hx Cardiac Catheterization, Hx Orthopedic Surgery - R foot/knee, L hand, R arm, Hx Tonsillectomy, Other - Removal of foreign body from my. Denies: Hx Pacemaker - Immunizations Immunizations up to date: No - tetnus given in ED Hx Diphtheria, Pertussis, Tetanus Vaccination: Yes Vertical Provider Document - CONSTITUTIONAL Notes: PHYSICAL EXAMINATION: Reviewed vital signs and charting by RN GENERAL: Alert, interacts well. No acute distress. HEAD: Normocephalic, atraumatic. EYES: Pupils equal and round. Extraocular movements intact. Subconjunctival hemorrhage on the lateral aspect of the left sclera at approximately the 2:00 to 5 o'clock position, no evidence of hypo-pion ENT: Oral mucosa moist, tongue midline. NECK: Full range of motion. Trachea midline. PSYCH: Normal affect, normal mood. SKIN: Warm, dry, normal turgor. No rashes or lesions noted. - INFECTION CONTROL TRAVEL OUTSIDE OF THE [place] IN LAST 30 DAYS: No Course - Re-evaluation Re-evalutation: 06/04/19 18:29 Tetracaine drops applied and patient with significant relief. Inverted eyelid and there was no evidence of foreign body or laceration, floor seen stain applied and Hawkins lamp revealed a small corneal abrasion at the 7 o'clock position and a subconjunctival hemorrhage on the lateral aspect from the 2 to 5 o'clock position. Plan is to give him erythromycin eye ointment and follow-up with ophthalmology tomorrow. Strict return precautions given stable for discharge. - Vital Signs Vital signs: Temp Pulse Resp BP Pulse Ox 98.0 F 62 16 139/89 H 96 06/04/19 17:35 06/04/19 17:35 06/04/19 17:35 06/04/19 17:35 06/04/19 17:35 Discharge - Discharge Clinical Impression: Subconjunctival hemorrhage of left eye Left eye injury Qualifiers: Encounter type: initial encounter Qualified Code(s): S05.92XA - Unspecified injury of left eye and orbit, initial encounter Condition: Good Disposition: HOME, SELF-CARE Additional Instructions: You have a corneal abrasion and a subconjunctival hemorrhage. This should improve in the next several days. You should apply 1 cm of the eye ointment to the affected up to 6 times per day. I have given you information for the manager social work will call him tomorrow for follow-up. Return if you have decreased vision, worsening pain, increased drainage from the eye, you notice redness or puffiness around the eye, you develop a fever greater than 101F, or you have any other symptoms that are concerning to you. Referrals: EZEQUIEL CROWDER FNP-BC [Primary Care Provider] - Follow up as needed HOOD WASSERMAN MD [ACTIVE STAFF] - Follow up tomorrow
[2019-06-04] MEDS ORDERED: ERYTHROMYCIN 0.5% OPH OINTMENT 3.5 GM (ER DISP) OU PRN (18:38)
[2019-06-04 19:02] VITALS: BP 119/66
== END 2019-06-04 19:01 | disposition home or self-care (01) ==
LOC: ER 17:22
DX: S05.92XA Unspecified injury of left eye and orbit, initial encounter (principal); H11.32 Conjunctival hemorrhage, left eye; W22.8XXA Striking against or struck by other objects, initial encounter; Y99.0 Civilian activity done for income or pay; F17.200 Nicotine dependence, unspecified, uncomplicated; I25.10 Atherosclerotic heart disease of native coronary artery without angina pectoris; Z86.718 Personal history of other venous thrombosis and embolism; I25.2 Old myocardial infarction; I10 Essential (primary) hypertension
CPT/HCPCS: 99283; J3490

== ENCOUNTER 2020-04-20 16:18 | Emergency (ER) | payer BC, OTHER ==
[2020-04-20 16:24] VITALS: BP 130/82
--- NOTE | 2020-04-20 17:04 | ER Document Report ---
ED Medical Screen (RME) - General Chief Complaint: Leg Pain Stated Complaint: LEFT LEG PAIN Time Seen by Provider: 04/20/20 16:55 Primary Care Provider: FAIZA RYAN DO [Primary Care Provider] - Follow up as needed TRAVEL OUTSIDE OF THE [place] IN LAST 30 DAYS: No - HPI Notes: 04/20/20 17:03 54-year-old male to the emergency department with complaints of left foot pain for the past several weeks that has now gotten significantly worse and also left lower leg pain for the past several days. states that the leg felt warm to touch last night. Patient states it is worse when he walks on it. He does have a past medical history pertinent for DVT in his leg in 2018. He was on Lovenox for several weeks and then Xarelto for about 6 months. He is not currently on a blood thinner. He does take a daily baby aspirin but otherwise no other dedicated blood thinners. Denies any chest pain or shortness of breath. He has noted significant varicosities in both legs. There is tenderness to palpation and medical screening exam to the bottom of the foot and to the calf. He has good DP pulses bilaterally. Skin is not dusky or cool to touch. Cap refill is less than 2 seconds in all toes. I performed a brief medical screening exam on the patient determined that the patient needs further evaluation and management by main side provider. I have placed initial orders to help expedite care. - Related Data Allergies/Adverse Reactions: No Known Allergies Allergy (Verified 04/20/20 16:56) Past Medical History - Social History Frequency of alcohol use: None Drug Abuse: None - Past Medical History Cardiac Medical History: Reports: Hx Coronary Artery Disease, Hx DVT - 2016, Hx Heart Attack, Hx Hypertension Denies: Hx Atrial Fibrillation, Hx Congestive Heart Failure, Hx Hypercholesterolemia, Hx Pulmonary Embolism Pulmonary Medical History: Denies: Hx Asthma, Hx COPD, Hx Sleep Apnea Neurological Medical History: Denies: Hx Seizures Endocrine Medical History: Denies: Hx Diabetes Mellitus Type 1, Hx Diabetes Mellitus Type 2, Hx Hyperthyroidism, Hx Hypothyroidism Renal/ Medical History: Denies: Hx Peritoneal Dialysis GI Medical History: Reports: Hx Gastroesophageal Reflux Disease, Hx Colonoscopy, Hx Endoscopy. Denies: Hx Cirrhosis, Hx Hepatitis Musculoskeltal Medical History: Reports Hx Arthritis, Reports Hx Musculoskeletal Trauma - Fracture hand bilateral toes foot nose Psychiatric Medical History: Denies: Hx Depression Traumatic Medical History: Reports: Hx Fractures - Fracture hand bilateral toes foot nose Infectious Medical History: Denies: Hx Hepatitis Past Surgical History: Reports: Hx Appendectomy, Hx Cardiac Catheterization, Hx Orthopedic Surgery - R foot/knee, L hand, R arm, Hx Tonsillectomy, Other - Removal of foreign body from my. Denies: Hx Pacemaker - Immunizations Immunizations up to date: No - tetnus given in ED Hx Diphtheria, Pertussis, Tetanus Vaccination: Yes Physical Exam - Vital signs Vitals: Temp Pulse Resp BP Pulse Ox 98.1 F 75 16 130/82 H 94 04/20/20 16:23 04/20/20 16:23 04/20/20 16:23 04/20/20 16:23 04/20/20 16:23 Course - Vital Signs Vital signs: Temp Pulse Resp BP Pulse Ox 98.1 F 75 16 130/82 H 94 04/20/20 16:23 04/20/20 16:23 04/20/20 16:23 04/20/20 16:23 04/20/20 16:23 Doctor's Discharge - Discharge Referrals: FAIZA RYAN DO [Primary Care Provider] - Follow up as needed
[2020-04-20 17:26] LABS: ABSOLUTE EOSINOPHILS # (AUTO) 0.2 10^3/uL (0.0-0.6); ABSOLUTE LYMPHOCYTES (AUTO) 3.8 10^3/uL (0.5-4.7); ABSOLUTE NEUT (AUTO) 6.5 10^3/uL (1.7-8.2); BASOPHILS % (AUTO) 0.3 % (0-2); EOSINOPHILS % (AUTO) 1.7 % (0-6); HEMATOCRIT 45.3 % (37.9-51.0); HEMOGLOBIN 15.4 g/dL (13.5-17.0); LYMPHOCYTES % (AUTO) 33.1 % (13-45); MEAN CORPUSCULAR HEMOGLOBIN 31.5 pg (27.0-33.4); MEAN CORPUSCULAR HGB CONC 33.9 g/dL (32.0-36.0); MEAN CORPUSCULAR VOLUME 93 fl (80-97); MONOCYTES % (AUTO) 8.6 % (3-13); PLATELET COUNT 277 10^3/uL (150-450); RED BLOOD COUNT 4.88 10^6/uL (4.35-5.55); RED CELL DISTRIBUTION WIDTH 14.7 % (11.5-14.0); SEGMENTED NEUTROPHILS % (AUTO) 56.3 % (42-78); TOTAL CELLS COUNTED % (AUTO) 100 %; WHITE BLOOD COUNT 11.5 10^3/uL (4.0-10.5)
[2020-04-20 17:33] LABS: INTERNATIONAL RATION (INR) 1.01; PROTHROMBIN TIME 13.5 SEC (11.4-15.4)
[2020-04-20 17:34] LABS: PARTIAL THROMBOPLASTIN TIME 28.4 SEC (23.5-35.8)
[2020-04-20 17:45] LABS: ALBUMIN 4.5 g/dL (3.5-5.0); ALKALINE PHOSPHATASE 62 U/L (38-126); ANION GAP 9 (5-19); ASPARTATE AMINO TRANSFERASE 37 U/L (17-59); BILIRUBIN,DIRECT 0.4 mg/dL (0.0-0.4); BILIRUBIN,TOTAL 0.8 mg/dL (0.2-1.3); BLOOD UREA NITROGEN 13 mg/dL (7-20); CALCIUM 9.6 mg/dL (8.4-10.2); CARBON DIOXIDE 28 mmol/L (22-30); CHLORIDE 102 mmol/L (98-107); GLUCOSE 89 mg/dL (75-110); POTASSIUM 4.3 mmol/L (3.6-5.0); TOTAL PROTEIN 7.4 g/dL (6.3-8.2)
--- NOTE | 2020-04-20 17:45 | RADIOLOGY REPORT (SQ) ---
EXAM DESCRIPTION: FOOT LEFT COMPLETE IMAGES COMPLETED DATE/TIME: 04/20/2020 5:30 pm REASON FOR STUDY: foot pain COMPARISON: None. NUMBER OF VIEWS: Three views. TECHNIQUE: AP, lateral and oblique radiographic images acquired of the left foot. LIMITATIONS: None. FINDINGS: MINERALIZATION: Normal. BONES: No acute fracture or dislocation. No worrisome bone lesions. Incidental note is made of norm al variant accessory navicular. A tiny ossicle seen at the calcaneonavicular interval may represent a degree fibrous coalition. Calcaneal enthesopathy is demonstrated. JOINTS: No effusions. SOFT TISSUES: No soft tissue swelling. No foreign body. OTHER: No other significant finding. IMPRESSION: No evidence of acute osseous injury or significant degenerative change. Incidental find ings detailed above may be related to patient's presenting symptoms. TECHNICAL DOCUMENTATION: JOB ID: [id number] 2010 [employer]- All Rights Reserved Reading location - IP/workstation name: [email or web address]
--- NOTE | 2020-04-20 19:22 | RADIOLOGY REPORT (SQ) ---
EXAM DESCRIPTION: VENOUS UNILATERAL LOWER IMAGES COMPLETED DATE/TIME: 04/20/2020 7:13 pm REASON FOR STUDY: left calf pain, foot pain, hx of DVT COMPARISON: None. 09/19/2017 TECHNIQUE: Dynamic and static stahl scale and color images acquired of the left leg venous system. Se lected spectral images acquired with additional compression and augmentation maneuvers. The contralat eral common femoral vein and saphenofemoral junction were also imaged. Images stored on PACS. LIMITATIONS: None. FINDINGS: COMMON FEMORAL: Normal phasicity, compression and augmentation. No visualized echogenic ma terial on stahl scale. No defects on color images. FEMORAL: Normal compression and augmentation. No visualized echogenic material on stahl scale. No defe cts on color images. POPLITEAL: Normal compression, augmentation. No visualized echogenic material on stahl scale. No defec ts on color images. CALF VESSELS: Normal compression, augmentation. No visualized echogenic material on stahl scale. No de fects on color images. GSV and SSV: Normal compression, augmentation. No visualized echogenic material on stahl scale. No def ects on color images. ANY DEEP VENOUS INSUFFICIENCY: Not evaluated. ANY EVIDENCE OF POPLITEAL CYST: No. OTHER: No other significant finding. CONTRALATERAL COMMON FEMORAL VEIN AND SAPHENOFEMORAL JUNCTION: Normal phasicity, compression and augmentation. No visualized echogenic material on stahl scale. No de fects on color images. IMPRESSION: NO EVIDENCE DVT OR SVT IN THE LEFT LEG. TECHNICAL DOCUMENTATION: JOB ID: [id number] 2010 [employer]- All Rights Reserved Reading location - IP/workstation name: [email or web address]
== END 2020-04-21 01:30 | disposition left against medical advice (07) ==
LOC: ER 16:18
DX: Z53.20 Procedure and treatment not carried out because of patient's decision for unspecified reasons (principal); M79.605 Pain in left leg; M79.672 Pain in left foot; Z79.01 Long term (current) use of anticoagulants; I25.10 Atherosclerotic heart disease of native coronary artery without angina pectoris; I10 Essential (primary) hypertension
CPT/HCPCS: 36415; 80053; 85025; 85610; 85730; 93971; 99281

== ENCOUNTER 2020-05-02 22:21 | Emergency (ER) | payer BC ==
[2020-05-02 22:44] LABS: ABSOLUTE EOSINOPHILS # (AUTO) 0.3 10^3/uL (0.0-0.6); ABSOLUTE LYMPHOCYTES (AUTO) 5.1 10^3/uL (0.5-4.7); ABSOLUTE MONOCYTES (AUTO) 1.3 10^3/uL (0.1-1.4); ABSOLUTE NEUT (AUTO) 6.3 10^3/uL (1.7-8.2); BASOPHILS % (AUTO) 0.1 % (0-2); EOSINOPHILS % (AUTO) 2.5 % (0-6); HEMATOCRIT 42.8 % (37.9-51.0); HEMOGLOBIN 14.5 g/dL (13.5-17.0); LYMPHOCYTES % (AUTO) 38.8 % (13-45); MEAN CORPUSCULAR HEMOGLOBIN 31.8 pg (27.0-33.4); MEAN CORPUSCULAR HGB CONC 33.8 g/dL (32.0-36.0); MEAN CORPUSCULAR VOLUME 94 fl (80-97); MONOCYTES % (AUTO) 10.2 % (3-13); PLATELET COUNT 265 10^3/uL (150-450); RED BLOOD COUNT 4.55 10^6/uL (4.35-5.55); RED CELL DISTRIBUTION WIDTH 15.2 % (11.5-14.0); SEGMENTED NEUTROPHILS % (AUTO) 48.4 % (42-78); TOTAL CELLS COUNTED % (AUTO) 100 %; WHITE BLOOD COUNT 13.1 10^3/uL (4.0-10.5)
[2020-05-02] MEDS ORDERED: ONDANSETRON HCL INJ/PF 4 MG/2 ML SDV IV ONE (22:45)
[2020-05-02] MEDS ORDERED: FAMOTIDINE 20 MG TABLET PO ONE (22:45)
--- NOTE | 2020-05-02 22:48 | ER Document Report ---
ED Cardiac - General Chief Complaint: Chest Pain Stated Complaint: CHEST PAIN Time Seen by Provider: 05/02/20 22:37 Primary Care Provider: FAIZA ACUNA DO [Primary Care Provider] - Follow up in 3-5 days Notes: Patient is a 54-year-old male that comes emergency department by EMS for chief complaint of chest pain. Patient states that he was in a group with a [employer] party drinking alcohol tonight, standing around having conversation when he started feeling pain that shot from underneath his left breast all the way up to his left shoulder. EMS gave him 324 mg of aspirin and 500 cc bolus of fluids and he states he already has no pain and feels much better. He denies nausea, vomiting, dizziness, shortness of breath, fever, cough, abdominal pain. He smokes, he has a history of JOSE DAVID but not COPD reportedly, he reports history of [place] and states he had heart catheterization but no stents, has a history of obe sity, denies medical history otherwise. 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 Acuna. He denies recreational drugs. at bedside. TRAVEL OUTSIDE OF THE [place] IN LAST 30 DAYS: No - Related Data Allergies/Adverse Reactions: No Known Allergies Allergy (Verified 04/20/20 16:56) Past Medical History - General Information source: Patient - Social History Smoking Status: Current Every Day Smoker Frequency of alcohol use: None Drug Abuse: None Lives with: Family Family History: Arthritis, CAD, COPD, CVA, Hyperlipidemia, Hypertension, Malignancy - Past Medical History Cardiac Medical History: Reports: Hx Coronary Artery Disease, Hx DVT - 2016, Hx Heart Attack, Hx Hypertension Denies: Hx Atrial Fibrillation, Hx Congestive Heart Failure, Hx Hypercholest erolemia, Hx Pulmonary Embolism Pulmonary Medical History: Denies: Hx Asthma, Hx COPD, Hx Sleep Apnea Neurological Medical History: Denies: Hx Seizures Endocrine Medical History: Denies: Hx Diabetes Mellitus Type 1, Hx Diabetes Mellitus Type 2, Hx Hyperthyroidism, Hx Hypothyroidism Renal/ Medical History: Denies: Hx Peritoneal Dialysis GI Medical History: Reports: Hx Gastroesophageal Reflux Disease, Hx Colonoscopy, Hx Endoscopy. Denies: Hx Cirrhosis, Hx Hepatitis Musculoskeletal Medical History: Reports Hx Arthritis, Reports Hx Musculoskel etal Trauma - Fracture hand bilateral toes foot nose Psychiatric Medical History: Denies: Hx Depression Traumatic Medical History: Reports: Hx Fractures - Fracture hand bilateral toes foot nose Infectious Medical History: Denies: Hx Hepatitis Past Surgical History: Reports: Hx Appendectomy, Hx Cardiac Catheterization, Hx Orthopedic Surgery - R foot/knee, L hand, R arm, Hx Tonsillectomy, Other - Removal of foreign body from my. Denies: Hx Pacemaker - Immunizations Immunizations up to date: No - tetnus given in ED Hx Diphtheria, Pertussis, Tetanus Vaccination: Yes Review of Systems - Review of Systems Constitutional: No symptoms reported EENT: No symptoms reported Cardiovascular: See HPI Respiratory: No symptoms reported Gastrointestinal: See HPI Genitourinary: No symptoms reported Male Genitourinary: No symptoms reported Musculoskeletal: No symptoms reported Skin: No symptoms reported Hematologic/Lymphatic: No symptoms reported Neurological/Psychological: No symptoms reported Physical Exam - Vital signs Vitals: Resp Pulse Ox 14 98 05/02/20 22:27 05/02/20 22:27 - Notes Notes: GENERAL: Alert, interacts well. No acute distress. Occasionally slurring words HEAD: Normocephalic, atraumatic. EYES: Pupils equal, round, and reactive to light. Extraocular movements intact. ENT: Oral mucosa moist, tongue midline. Oropharynx unremarkable. Airway patent. NECK: Full range of motion. Supple. Trachea midline. No lymphadenopathy. LUNGS: Clear to auscultation bilaterally, no wheezes, rales, or rhonchi. No respiratory distress. Non-tender chest wall. HEART: Borderline bradycardic, normal rhythm, no murmur ABDOMEN: Soft, non-tender. Non-distended. Bowel sounds present in all 4 qu adrants. GENITOURINARY: Deferred EXTREMITIES: Moves all 4 extremities spontaneously. No edema, normal radial and dorsalis pedis pulses bilaterally. No cyanosis. BACK: no cervical, thoracic, lumbar midline tenderness. No saddle anesthesia, normal distal neurovascular exam. Moves all extremities in full range of motion. NEUROLOGICAL: Alert and oriented x3. Occasionally mildly slurred speech. Crani al nerves II through XII grossly intact. Strength 5/5 in all extremities. PSYCH: Normal affect, normal mood. SKIN: Flushed Course - Re-evaluation Re-evalutation: Patient indicates he had symptoms from the left upper abdomen up into the chest and towards the left shoulder briefly during the episode prior to arrival. He has not had any symptoms since. He has no complaints on my exam. He does have episodes of bradycardia but on review of previous records this is not out of the ordinary for the patient and he states this is normal for him. He fell asleep and became mildly hypotensive, however we checked orthostatics and had him ambulate and this was unremarkable. Patient was given IV fluids and then on my reevaluation systolic blood pressure is 102 and patient got up and ambulated without any difficulty or complaints. CBC shows mild leukocytosis, nonspecific given his evaluation. Chest x-ray unremarkable. Chemistry shows glucose of 74, patient was fed. Troponin negative. CK-MB is slightly elevated and was rechecked and not significantly different, troponin cycled and negative. Patient intoxicated with alcohol greater than 170. Patient also has no tachycardia, hypoxia, shortness of breath, or current symptoms suggesting pulmonary embolism. No lower extremity swelling. Reevaluate patient again. Patient is not had any symptoms. Patient no longer intoxicated, states he feels much better, discussing going home. I did discuss with Dr. Suarez because of his significant history of cardiovascular disease, however based on his presentation, work-up, low suspicion that this is cardiac or that patient has any acute intrathoracic etiology. Patient stable to follow- up with primary care and return for any concerning symptoms. Discussed expectations, follow-up, return precautions. Patient and state appreciation and agreement. - Vital Signs Vital signs: Temp Pulse Resp BP Pulse Ox 97.6 F 84 18 96/51 L 96 05/03/20 03:01 05/03/20 02:03 05/03/20 03:01 05/03/20 03:01 05/03/20 03:01 - Laboratory Result Diagrams: 05/02/20 22:30 05/02/20 22:36 Laboratory results interpreted by me: 05/02/20 05/02/20 05/02/20 22:30 22:36 22:36 WBC 13.1 H RDW 15.2 H Absolute Lymphs (auto) 5.1 H Sodium 135.1 L Carbon Dioxide 21 L Glucose 74 L CK-MB (CK-2) 8.31 H 05/03/20 01:25 EST WBC RDW Absolute Lymphs (auto) Sodium Carbon Dioxide Glucose CK-MB (CK-2) 8.81 H - EKG Interpretation by Me Additional EKG results interpreted by me: EKG shows sinus bradycardia at a rate of 45, normal axis, QTC 398, no T wave inversions or ST segment changes in consecutive leads Discharge - Discharge Clinical Impression: Chest pain Qualifiers: Chest pain type: unspecified Qualified Code(s): R07.9 - Chest pain, unspecified Alcohol intoxication Qualifiers: Complication of substance-induced condition: uncomplicated Qualified Code(s): F10.920 - Alcohol use, unspecified with intoxication, uncomplicated Condition: Stable Disposition: HOME, SELF-CARE Additional Instructions: Your work-up does not show any concerning findings tonight. I suspect your pain was gastrointestinal, most likely from your stomach bag. Start with clear fluids and bland food, take Zofran today if needed, take the Pepcid if needed, avoid alcohol for the next couple of days. Follow-up with your primary care provider for additional management. Return if you worsen including return of pain, vomiting, difficulty breathing, f ever, passing out, or any other concerning symptoms. Prescriptions: Famotidine [Pepcid 20 mg Tablet] 20 mg PO BID #20 tablet Referrals: FAIZA ACUNA DO [Primary Care Provider] - Follow up in 3-5 days
[2020-05-02 23:02] LABS: ALBUMIN 4.3 g/dL (3.5-5.0); ALCOHOL 173 mg/dL (NONE DETECTED); ALKALINE PHOSPHATASE 46 U/L (38-126); ANION GAP 14 (5-19); ASPARTATE AMINO TRANSFERASE 38 U/L (17-59); BILIRUBIN,TOTAL 0.7 mg/dL (0.2-1.3); BLOOD UREA NITROGEN 11 mg/dL (7-20); CALCIUM 8.9 mg/dL (8.4-10.2); CARBON DIOXIDE 21 mmol/L (22-30); CHLORIDE 100 mmol/L (98-107); GLUCOSE 74 mg/dL (75-110); POTASSIUM 3.8 mmol/L (3.6-5.0); TOTAL PROTEIN 7.4 g/dL (6.3-8.2)
--- NOTE | 2020-05-02 23:08 | RADIOLOGY REPORT (SQ) ---
EXAM DESCRIPTION: XR CHEST 1 VIEW COMPLETED DATE/TME: 05/02/2020 22:36 CLINICAL HISTORY: chest pain COMPARISON: None. FINDINGS: Single frontal radiograph view of the chest. Cardiomediastinal silhouette: Normal size and contour. Lungs: No consolidation, pneumothorax, or pleural effusion. Bones: No acute osseous abnormality. Leads overlie the chest. Upper abdomen: No abnormality identified. IMPRESSION: 1. No acute pulmonary process identified.
[2020-05-02 23:12] LABS: CREATINE KINASE MB 8.31 ng/mL (<4.55)
[2020-05-02 23:15] LABS: TROPONIN I < 0.012 ng/mL
[2020-05-03] MEDS ORDERED: NORMAL SALINE 500 ML IV ONE (02:01)
[2020-05-03] MEDS ORDERED: ONDANSETRON ODT 4 MG TAB (6 TAB/ER DISP) PO PRN (02:31)
[2020-05-03 03:14] VITALS: BP 96/51
--- NOTE | 2020-05-03 08:42 | EKG REPORT ---
SEVERITY:- ABNORMAL ECG - SINUS BRADYCARDIA NONSPECIFIC INTRAVENTRICULAR CONDUCTION DELAY NONSPECIFIC ST-T CHANGES DIFFUSE : Confirmed by: Roger Avila MD 03-May-2020 08:41:02
== END 2020-05-03 03:13 | disposition home or self-care (01) ==
LOC: ER 22:21
DX: R07.9 Chest pain, unspecified (principal); F10.120 Alcohol abuse with intoxication, uncomplicated; R00.1 Bradycardia, unspecified; I25.10 Atherosclerotic heart disease of native coronary artery without angina pectoris; I10 Essential (primary) hypertension; I25.2 Old myocardial infarction; F17.200 Nicotine dependence, unspecified, uncomplicated
CPT/HCPCS: 93005; 99285; 96361; 96374; 36415; 82553; 80307; 83690; 85025; 80053; 84484; 71045; 93010; J2405; J7040